=== PATIENT | male | born 1940 | race Caucasian/White ===

== ENCOUNTER 2020-04-06 20:06 | Inpatient (IN) | payer MEDICARE, OTHER, SELFPAY ==
[2020-04-06] VITALS (31 sets, daily range): BP systolic 82–131; BP diastolic 62–104; PULSE 100–140; RESP 16–24; TEMP 36.2; O2SAT 93–98
--- NOTE | ~2020-04-06 | XR_ITS ---
XR chest 1V portable 04/06/2020 20:56 Indication: Chest palpitations. Procedure: AP portable chest Comparison: No prior studies for comparison. Findings: Status post median sternotomy for CABG. Pacemaker leads are in expected position. There is patchy bilateral airspace disease predominantly involving the lower lung zones. Small pleural effusio ns. No pneumothorax. Impression: 1: Bilateral airspace disease most prominent in the lower lung zones. Differential diagnosis includes pneumonia and edema. 2: Small pleural effusions. 3: Cardiomegaly. Reviewed, dictated and finalized at location A. [employer] SALES MANAGER Impression: 1: Bilateral airspace disease most prominent in the lower lung zones. Different ial diagnosis includes pneumonia and edema. 2: Small pleural effusions. 3: Cardiomegaly.
--- NOTE | 2020-04-06 20:13 | ECG_ITS ---
Measurements Intervals [place] Rate: 125 P: UT: 0 QRS: 94 QRSD: 148 T: -88 QT: 360 QTc: 519 Interpretive Statements ATRIAL FIBRILLATION WITH RAPID VENTRICULAR RESPONSE VENTRICULAR TRIPLET, VENTRICULAR COUPLET AND VENTRICULAR PREMATURE COMPLEXES RIGHT AXIS DEVIATION LEFT BUNDLE BRANCH BLOCK BASELINE ARTIFACT- I, II, III ABNORMAL ECG Electronically Signed On 04-09-2020 13:44:39 CLINICAL OB by Edu Falcon D.O.
[2020-04-06 20:35] LABS: Basophils Percent Auto 0.2 % (0.2-1.2); Eosinophils Absolute Auto 0.1 K/mm3 (0-0.3); Eosinophils Percent Auto 1.2 % (0-4.4); Hematocrit 34.5 % (42.0-52.0); Hemoglobin 10.8 g/dL (14.0-18.0); Immature Granulocyte Absolute 0.04 K/mm3 (0.00-0.031); Immature Granulocyte Percent A 0.4 % (0-0.5); Lymphocytes Percent Auto 14.4 % (18.3-44.2); Mean Corpuscular HGB Conc 31.3 g/dl (32-36); Mean Corpuscular Hemoglobin 29.2 pg (26-34); Mean Corpuscular Volume 93.2 fl (80-100); Mean Platelet Volume 10.9 fl (7.4-10.4); Monocytes Absolute Auto 0.8 K/mm3 (0.1-0.6); Monocytes Percent Auto 8.6 % (2.6-8.5); Neutrophils Absolute Auto 7.3 K/mm3 (1.3-6.7); Neutrophils Percent Auto 75.2 % (45.5-73.1); Platelet Count Result 221 k/mm3 (150-375); Red Cell Distribution Width 15.9 % (11.5-14.5); White Blood Count 9.7 K/mm3 (4.5-10.0)
[2020-04-06 20:45] LABS: INR 1.4
[2020-04-06 20:46] LABS: Partial Thromboplastin Time 42.4 SECONDS (22.3-36.8)
[2020-04-06 20:47] LABS: Anion Gap 5 mmol/L (8-16); Blood Urea Nitrogen 18 mg/dL (9-20); Calcium 8.3 mg/dL (8.4-10.2); Carbon Dioxide 27 mmol/L (22-30); Chloride 103 mmol/L (98-107); Estimated Glomerular Filt Rate 59; Glucose 115 mg/dL (75-110); Potassium 4.7 mmol/L (3.4-5.0); Sodium 135 mmol/L (137-145)
[2020-04-06 20:59] LABS: NT Pro B Type Natriuretic Pept 7860 PG/ML (5-100); Troponin I 0.021 ng/mL (0.000-0.034)
--- NOTE | 2020-04-06 21:08 | PC.NURSE ---
Patient's pacemaker interrogated.
[2020-04-06] MEDS: dilTIAZem HCl INJ 25 MG/5 ML VIAL 10 MG IV PUSH (21:13)
--- NOTE | 2020-04-06 21:48 | ED.ARRPALP ---
HPI - Arrhythmia/Palpitations General Chief Complaint: Arrhythmia/Palpitations Stated Complaint: defib x 4 Time Seen by Provider: 04/06/20 20:11 History of Present Illness HPI narrative: Patient is a 79-year-old male who presents ER after experiencing 4 shocks from his defibrillator. He was at home he reports he been feeling small shortness of breath with laying back which is not unusual for him. Patient recently underwent three-vessel CABG with defibrillator placement at [facility]. He was discharged the last 2 days. Denies fevers or chills or sweats. No nausea/vomiting. He has had no chest pain since being at home. He is unsure what brand device is implanted in his chest. Reports no additional concerns. Related Data Home Medications Medication Instructions Recorded Confirmed apixaban 5 mg PO BID 04/06/20 aspirin [Aspir-81] 04/06/20 atorvastatin 80 mg PO DAILY 04/06/20 cholecalciferol (vitamin D3) 50 mcg PO DAILY 04/06/20 dofetilide 125 mcg PO Q12H 04/06/20 ferrous sulfate 325 mg PO DAILY 04/06/20 levothyroxine 50 mcg PO DAILY 04/06/20 lisinopril 10 mg PO DAILY 04/06/20 melatonin 1 mg PO HS PRN 04/06/20 metoprolol succinate 100 mg PO BID 04/06/20 mexiletine 200 mg PO Q8H 04/06/20 mirtazapine 15 mg PO DAILY 04/06/20 polyethylene glycol 3350 17 g PO DAILY 04/06/20 spironolactone 25 mg PO DAILY 04/06/20 Allergies Allergy/AdvReac Type Severity Reaction Status Date / Time quetiapine [From Seroquel] AdvReac Hallucinati Verified 04/06/20 20:12 ng Review of Systems Review of Systems: All systems reviewed & are unremarkable except as noted in HPI and below Constitutional: Constitutional: Denies chills, Denies fever(s) and Denies weakness ENT: Denies nasal congestion and Denies sore throat Cardiovascular: Cardiovascular: Denies chest pain, Denies rapid heart rate and Denies radiating jaw, neck or arm pain Respiratory: Respiratory: Denies cough, Reports dyspnea and Denies wheezing Comments: Orthopnea Gastrointestinal: Gastrointestinal: Denies abdominal pain, Denies nausea and Denies vomiting Integumentary/Breasts: Skin/Breast: Denies pruritus, Denies erythema and Denies rash PMFSH Past Medical History Medical History (Updated 04/06/20 @ 23:58 by Prateek Garduno MD) Atrial fibrillation CHF (congestive heart failure) Coronary artery disease Hypertension Surgical History Surgical History (Updated 04/06/20 @ 21:50 by Prateek Garduno MD) AICD (automatic cardioverter/defibrillator) present Hx of CABG Exam Narrative: Exam Narrative: GENERAL: Well-appearing, well-nourished, and in no acute distress. HEAD: Normocephalic, atraumatic. ENT: Mucous membranes moist. CHEST: Clear to auscultation. No respiratory distress. HEART: Tachycardic and irregular regular. Normal peripheral pulses. ABDOMEN: Soft, nontender, nondistended. EXTREMITIES: Normal range of motion. No edema. SKIN: Warm, dry, no rash. Well-healing surgical scars to the chest. NEURO: Alert and oriented x3. PSYCH: Normal mood and affect. Course Reevaluation(s) Reevaluation #1: Discussed case with Dr. Vazquez with cardiology at [facility]. We have discussed patient's presentation and history as well as his lab results. He is also been in touch with the [employer] hotel services sales representative who reviewed the strip. It is felt patient received inappropriate shocks due to the fact that he is in atrial fibrillation with RVR. Reports he feels patient needs better rate control. He does not feel patient needs to be transferred to [facility] at this time as this is not reflective of actual V. tach. Like to ensure that patient potassium stays above 4 as he is on Tikosyn. He has no additional concerns at this time. Reports he actually has patient scheduled for follow-up on 04/28/2020. Date: 04/06/20 Time: 22:41 Reevaluation #2: [facility] as he does not have a recent Covid swab despite him no
--- NOTE | 2020-04-06 23:47 | PC.NURSE ---
Called [facility] [place], spoke with A[facility]. He said they cannot accept a patient that has NOT been COVID tested and resulted. I told him that our COVID tests take anywhere from 24-48 hours, could be longer because they do not run the tests in our lab on Sundays. I asked him (per Dr. Garduno) if the he was refusing transfer/care of this patient due to COVID testing. He said YES. I also asked him since they were refusing the patient and he had to be admitted here, if the [place] would cover costs until such time the patient could be transferred to the [place] [facility]. He said YES. Informed Dr. Garduno and gear technician.
[2020-04-06 23:56] LABS: Troponin I 0.123 ng/mL (0.000-0.034)
[2020-04-06] MEDS: FUROSEMIDE INJ 40 MG/4 ML VIAL IV PUSH (23:59)
[2020-04-07] VITALS (22 sets, daily range): BP systolic 93–118; BP diastolic 49–91; PULSE 82–129; RESP 18–25; TEMP 35.6–36.7; O2SAT 95–99; BMI 24.3
--- NOTE | 2020-04-07 00:51 | PM.IMHP ---
H&P: HPI History of Present Illness Date/Time: 04/07/20 00:51 Chief Complaint: Defibrillator firing x4 Narrative: Pablo Medley is a 79 year old male with a past medical history of hypothyroidism, hypertension, coronary artery disease status post three-vessel CABG 03/04/2020 and atrial fibrillation who presented to the ER after having his defibrillator firing 4 times. The patient had been admitted to [facility] 03/04/2020 had 3 vessel CABG and ICD placed. He was discharged from [facility] in mid March and went to [facility] for acute rehab. He was discharged from acute rehab 04/04/2020. This was the 1st time his defibrillator had fired. When he presented to the ER he was noted to be in AFib RVR with a left bundle branch block. His pacemaker/defibrillator was interrogated and the interpretation was discussed with Dr. Vazquez from [facility] who felt the inappropriate shocks were due to patient being AFib RVR. He felt the patient needed improved rate control. He would like the patient's potassium to remain above 4 as he is on Tikosyn. The patient has an outpatient cardiology follow-up scheduled for 04/28/2020. [facility]. His case was discussed with the [facility] who declined transfer since patient did not have her recent COVID swab Patient's heart rate heart rate was in the 140s on arrival to the ER. He was given a dose of IV Cardizem and placed on a Cardizem drip at 10 mg/hr. Patient's x-ray in ER demonstrated evidence of versus edema and small pleural effusions and cardiomegaly. He subsequently received a dose of IV Lasix and has had at least a L of urine output since he arrived to the IMU. He denied having any chest pain prior to his defibrillator firing. He had not felt any palpitations. The patient had not yet filled his 2nd anti arrhythmic (Mexiletine) since he was discharged from rehab. Since he has been placed on a Cardizem drip his heart rate has improved down to 90. He appears to be going in and out of a bundle branch block on his telemetry. He will intermittently jump but heart rate up to 120 the 130s if he is moving around. He has not had any lower extremity swelling, orthopnea or paroxysmal nocturnal dyspnea. He has not had any cough congestion fevers or chills. Review of Systems Review of Systems: Narrative: 12 systems were reviewed with pertinent positives and negatives per HPI. Except as documented in the HPI, all other systems were reviewed and are negative. However limited as the patient is a poor historian. [facility] Past Medical History Medical History (Updated 04/07/20 @ 07:01 by Leisa Baez DO) Atrial fibrillation With history of ablation in 2019. On chronic anticoagulation with Eliquis CHF (congestive heart failure) Chronic constipation Coronary artery disease Diet-controlled diabetes mellitus Essential hypertension Hyperlipidemia Hypertension Hypothyroidism Iron deficiency anemia Ischemic cardiomyopathy with implantable cardioverter-defibrillator (ICD) Obstructive sleep apnea on CPAP Vitamin D deficiency Surgical History Surgical History (Updated 04/07/20 @ 07:01 by Leisa Baez DO) AICD (automatic cardioverter/defibrillator) present 03/04/2020 H/O inguinal hernia repair Due to incarcerated hernia as a child Hx of CABG 03/04/2020 at [facility] Hx of tonsillectomy Family History Family History Father Cerebrovascular accident Diabetes mellitus Esophageal cancer Social History Social History (Updated 04/07/20 @ 00:57 by Leisa Baez DO) Social History: Primary care physician: [facility] Code status: Full code Smoking packs per day: 2.5 Smoking cigarettes per day: 50.0 Years smoked: 30 Smoking pack-years: 75.00 Smoking status: Former smoker Smoking end date: 08/29/80 Alcohol intake: never Substance use: never Spiritual care alan
[2020-04-07 01:54] LABS: Glucose Point of Care 111 (65-105)
--- NOTE | 2020-04-07 02:37 | ADMIMU ---
This patient, Pablo Medley, was admitted to IMU status, and placed in IMU Room 232-01 on 04/07/20 at 0048. Patient/family oriented to hospital policies and general routines including ID bracelet, bed and alarms, visiting hours, pain management, procedures, bathroom and other care routines, personal items, smoking policy, room service/diet, and visiting hours. Information on how to activate the Rapid Response Team has been discussed. Patient/Family are encouraged to report perceived risks to care and to ask questions if they do not understand what they are told or what they should do.
[2020-04-07 03:18] LABS: Troponin I 0.143 ng/mL (0.000-0.034)
[2020-04-07 05:04] LABS: Anion Gap 3 mmol/L (8-16); Blood Urea Nitrogen 17 mg/dL (9-20); Calcium 8.2 mg/dL (8.4-10.2); Carbon Dioxide 30 mmol/L (22-30); Chloride 101 mmol/L (98-107); Estimated CRCL calculation 45 ml/min; Estimated Glomerular Filt Rate 53; Glucose 120 mg/dL (75-110); Magnesium 1.6 mg/dL (1.6-2.3); Potassium 3.9 mmol/L (3.4-5.0); Sodium 134 mmol/L (137-145)
--- NOTE | 2020-04-07 06:13 | PC.NURSE ---
Left message on Jessica's voicemail asking to bring nonformulary dofetilide to the hospital.
[2020-04-07] MEDS: LEVOTHYROXINE SODIUM 50 MCG TABLET PO (06:36)
[2020-04-07 07:37] LABS: Glucose Point of Care 88 (65-105)
[2020-04-07] MEDS: ATORVASTATIN 40 MG TABLET PO (09:10)
[2020-04-07] MEDS: POTASSIUM CHLORIDE 20 MEQ TABLET PO (09:10)
[2020-04-07] MEDS: SPIRONOLACTONE 12.5 MG TABLET PO (09:11)
[2020-04-07] MEDS: FUROSEMIDE INJ 40 MG/4 ML VIAL IV PUSH (09:11)
[2020-04-07] MEDS: ASPIRIN 81 MG ENTERIC TABLET PO (09:11)
[2020-04-07] MEDS: lisinopriL 5 MG TABLET PO (09:11)
[2020-04-07] MEDS: MEXILETINE HCL 200 MG CAPSULE PO ×2 (09:11→15:11)
[2020-04-07] MEDS: CHOLECALCIFEROL 1,000 UNITS TABLET 2000 UNITS PO (09:12)
[2020-04-07] MEDS: METOPROLOL SUCCINATE EXT REL 50 MG TABCR PO (09:12)
[2020-04-07] MEDS: APIXABAN 5 MG TABLET PO (09:12)
[2020-04-07] MEDS: FERROUS SULFATE 324 MG TABLET PO (09:12)
[2020-04-07] MEDS: HYDROcodone/acetaminophen (*CRX) 5-325 MG TABLET 1 TAB PO (09:17)
--- NOTE | 2020-04-07 11:23 | WPDCNINT ---
Assessment and Plan Assessment and plan (1) Ventricular tachycardia: Code(s): I47.2 - Ventricular tachycardia Status: Acute Assessment and Plan: Patient presented with VT which was cardioverted with his AICD. AICD interrogation shows multiple episodes of ventricular tachycardia. Likely secondary to his ischemic cardiomyopathy Patient on p.o. dofetilide and he has not started mexiletine Cardiology will decide on best strategy at this time regarding antiarrhythmic drugs after discussion with pharmacy. Plan is to start amiodarone after consideration of interaction with other antiarrhythmic drugs. I will defer this to Dr. Gomez who will discuss with pharmacy and order the appropriate medication Patient will be admitted to ICU for monitoring Monitor electrolytes (2) Atrial fibrillation with rapid ventricular response: Code(s): I48.91 - Unspecified atrial fibrillation Status: Acute Assessment and Plan: He was in AFib with RVR on presentation as depicted by his EKG but at this time he is in sinus rhythm with frequent PVCs (3) AICD discharge: Code(s): Z45.02 - Encounter for adjustment and management of automatic implantable cardiac defibrillator Status: Acute Assessment and Plan: See above (4) Ischemic cardiomyopathy with implantable cardioverter-defibrillator (ICD): Code(s): I25.5 - Ischemic cardiomyopathy; Z95.810 - Presence of automatic (implantable) cardiac defibrillator Status: Inactive Assessment and Plan: See above Will defer echocardiogram as patient is going to [facility] once bed is available Patient on Aldactone, LES-inhibitor and beta-elbert (5) Acute exacerbation of CHF (congestive heart failure): Qualifiers: Heart failure type: unspecified Qualified Code(s): I50.9 - Heart failure, unspecified Code(s): I50.9 - Heart failure, unspecified Status: Acute Assessment and Plan: Patient received Lasix on presentation to ER and currently saturating well on nasal cannula and not in respiratory distress Still has crackles on his bases Continue Lasix (6) NSTEMI (non-ST elevated myocardial infarction): Code(s): I21.4 - Non-ST elevation (NSTEMI) myocardial infarction Status: Acute Assessment and Plan: Patient had elevated troponin likely from V-tach and AICD discharge He denies any chest pain before or after the event Continue aspirin apixaban atorvastatin and beta-elbert (7) Coronary artery disease: Code(s): I25.10 - Atherosclerotic heart disease of [place] coronary artery without angina pectoris Status: Inactive Assessment and Plan: See above (8) Diabetes mellitus: Code(s): E11.9 - Type 2 diabetes mellitus without complications Status: Acute Assessment and Plan: Patient takes metformin at home. Sliding scale insulin Additional Plan DVT prophylaxis -apixaban Nutrition -diabetic diet Code Status - Full Code Case discussed with Dr. Gomez Hydraulic Tester Consult Note Consult date: 04/07/20 Time Seen: 11:30 HPI: Pablo Medley is a 79 year old male with a past medical history of hypothyroidism, hypertension, coronary artery disease status post three-vessel CABG 03/04/2020 and atrial fibrillation who presented to the ER after having his defibrillator firing 4 times prior to presentation. The patient had been admitted to [facility] 03/04/2020 had 3 vessel CABG and ICD placed. He was discharged from [facility] in mid March and went to [facility] for acute rehab. He was discharged from acute rehab 04/04/2020. This was the 1st time his defibrillator had fired. When he presented to the ER he was noted to be in AFib RVR with a left bundle branch block. His pacemaker/defibrillator was interrogated and the interpretation was discussed with Dr. Vazquez from [facility] who felt the inappropriate shocks were due to patient being AFib RVR. He felt th
--- NOTE | 2020-04-07 11:25 | PM.CNCAR ---
Assessment and Plan Additional Plan AF with RVR resulted in inappropriate shock and recurrent frequent episodes of NSVT. Hx of CABG recently and Hx of recurrent arrhythmia following with EP team in [facility], plan D/C mexiletine and Dofetilide and D/C Diltiazem and start amiodarone infusion. Cont B-elbert, ASA, statin. We need to consult pharmacy regarding change from Dofetilide to Amiodarone giving risk of drug interaction. I suggest that amiodarone not started until tomorrow. History of Present Illness History of Present Illness Consult date/time: 04/07/20 11:25 Consult reason: Other (Device shock ) Reason For Visit: afib rvr, acid shock, chf exacerbation Narrative: Patient presented to hospital with acute chest pain secondary to device shock * 4 yesterday. He felt dizziness for short period of time associated with SOB but feels better today. He CABG in [facility] in Mar and had Hx of AF and was on Tikosyn and He was also on mexilitine. Overnight he was noted to have more than 20 episodes of NSVT and 2 episodes of VT that was treated with anti-tachycardia pacing or terminated spontaneously. Review of Systems Review of Systems: All systems reviewed & are unremarkable except as noted in HPI and below PMFSH Past Medical History Medical History (Updated 04/07/20 @ 11:25 by Hussein Vasquez MD) Atrial fibrillation With history of ablation in 2019. On chronic anticoagulation with Eliquis CHF (congestive heart failure) Chronic constipation Coronary artery disease Diet-controlled diabetes mellitus Essential hypertension Hyperlipidemia Hypertension Hypothyroidism Iron deficiency anemia Ischemic cardiomyopathy with implantable cardioverter-defibrillator (ICD) Obstructive sleep apnea on CPAP Vitamin D deficiency Surgical History Surgical History AICD (automatic cardioverter/defibrillator) present 03/04/2020 H/O inguinal hernia repair Due to incarcerated hernia as a child Hx of CABG 03/04/2020 at [facility] Hx of tonsillectomy Family History Family History Father Cerebrovascular accident Diabetes mellitus Esophageal cancer Social History Social History Social History: Primary care physician: [facility] Code status: Full code Smoking packs per day: 2.5 Smoking cigarettes per day: 50.0 Years smoked: 30 Smoking pack-years: 75.00 Smoking status: Former smoker Smoking end date: 08/29/80 Alcohol intake: never Substance use: never Spiritual care concerns: No Meds Home Medications and Allergies Home Medications Medication Instructions Recorded Confirmed Type apixaban 5 mg PO BID 04/06/20 04/07/20 History aspirin [Aspir-81] 81 mg PO DAILY 04/06/20 04/07/20 History atorvastatin 40 mg PO DAILY 04/06/20 04/07/20 History cholecalciferol (vitamin D3) 50 mcg PO DAILY 04/06/20 04/07/20 History dofetilide 125 mcg PO Q12H 04/06/20 04/07/20 History ferrous sulfate 325 mg PO DAILY 04/06/20 04/07/20 History levothyroxine 50 mcg PO DAILY 04/06/20 04/07/20 History lisinopril 5 mg PO DAILY 04/06/20 04/07/20 History melatonin 2 mg PO HS PRN 04/06/20 04/07/20 History metoprolol succinate 50 mg PO BID 04/06/20 04/07/20 History mexiletine 200 mg PO TID 04/06/20 04/07/20 History mirtazapine 15 mg PO DAILY 04/06/20 04/07/20 History polyethylene glycol 3350 17 g PO DAILY PRN 04/06/20 04/07/20 History spironolactone 12.5 mg PO DAILY 04/06/20 04/07/20 History Allergies Allergy/AdvReac Type Severity Reaction Status Date / Time quetiapine [From Seroquel] AdvReac Hallucinati Verified 04/07/20 01:07 ng Vital Signs Vital Signs - 24 hr 04/06/20 20:03 04/06/20 20:09 04/06/20 20:10 Temperature 36.2 C L Pulse Rate 140 H 140 H Respiratory Rate 20 Blood Pressure 108/87 108/87 Pulse Oximetry 97 94 04/06/20 20:15 02/06
[2020-04-07 11:54] LABS: Glucose Point of Care 95 (65-105)
--- NOTE | 2020-04-07 12:11 | PM.IMPN ---
Progress Note: A&P Assessment and Plan (1) Atrial fibrillation with rapid ventricular response: Code(s): I48.91 - Unspecified atrial fibrillation Status: Acute (2) AICD discharge: Code(s): Z45.02 - Encounter for adjustment and management of automatic implantable cardiac defibrillator Status: Acute (3) Acute exacerbation of CHF (congestive heart failure): Qualifiers: Heart failure type: unspecified Qualified Code(s): I50.9 - Heart failure, unspecified Code(s): I50.9 - Heart failure, unspecified Status: Acute (4) Diabetes mellitus: Code(s): E11.9 - Type 2 diabetes mellitus without complications Status: Acute (5) Coronary artery disease: Code(s): I25.10 - Atherosclerotic heart disease of [place] coronary artery without angina pectoris Status: Acute (6) Hypertension: Code(s): I10 - Essential (primary) hypertension Status: Inactive (7) DVT prophylaxis: Code(s): Z29.9 - Encounter for prophylactic measures, unspecified Status: Acute Additional Plan Patient admitted after defibrillator discharge x4. Telemetry showing frequent nonsustained V-tach and also episodes of V-tach. With atrial fibrillation with RVR. Discussed the case with Cardiology with plans to stop mexiletine and Dofetilide and start amiodarone infusion. He has already spoken with the EP physician at [facility] with plans for transfer when a bed is available. Patient to be moved to the ICU for closer monitoring. Subjective Date/time seen: 04/07/20 12:11 Interval history: Date of service 04/07 79yo male with CHF, CAD and diabetes here after his defibrillator fired x4. Patient recently at [facility] on March 04 for three-vessel CABG and ICD placement. He was discharged to acute rehab; he was discharged from acute rehab on April 04 Patient denies any chest pain or other symptoms prior to the firing of the defibrillator. He does state he felt tired. He does have sleep apnea and is noncompliant with treatment. He does not wear oxygen at home. He has shortness of breath but this is chronic. He feels better today. Exam Narrative: Exam Narrative: AF 97.3 104/49 96 22 96% RA Gen - NARD lyiing semirecumbent in bed Chest - L>R bibasilar inspiratory, nml RR. midline chest incision with dried eschar and healing well CV - irregularly irregular. Tele showing runs of NSVT Abd - Soft, NT/ND, Positive BS Ext - No pedal edema; 2+ DP Psych - Nml mood and affect Skin - cool and dry Objective Data Vital Signs Vital Signs: Vital Signs - 24 hr 04/06/20 20:03 04/06/20 20:09 04/06/20 20:10 Temperature 97.1 F L Pulse Rate 140 H 140 H Respiratory Rate 20 Blood Pressure 108/87 108/87 Pulse Oximetry 97 94 04/06/20 20:15 04/06/20 20:16 04/06/20 20:30 Temperature Pulse Rate 118 H 126 H 122 H Respiratory Rate Blood Pressure 131/104 H Pulse Oximetry 95 95 94 04/06/20 20:31 04/06/20 20:45 04/06/20 21:00 Temperature Pulse Rate 117 H 115 H 114 H Respiratory Rate Blood Pressure 118/77 Pulse Oximetry 96 97 97 04/06/20 21:01 04/06/20 21:02 04/06/20 21:15 Temperature Pulse Rate 133 H 122 H 111 H Respiratory Rate Blood Pressure 103/82 Pulse Oximetry 97 98 96 04/06/20 21:30 04/06/20 21:32 04/06/20 21:39 Temperature Pulse Rate 127 H 120 H 124 H Respiratory Rate 23 H 23 H 23 H Blood Pressure 98/71 L Pulse Oximetry 96 96 95 04/06/20 21:41 04/06/20 21:45 04/06/20 22:00 Temperature Pulse Rate 100 115 H 123 H Respiratory Rate 22 H 17 23 H Blood Pressure 112/62 Pulse Oximetry 96 96 93 04/06/20 22:01 04/06/20 22:15 04/06/20 22:30 Temperature Pulse Rate 115 H 118 H 125 H Respiratory Rate 22 H 24 H 22 H Blood Pressure 101/75 Pulse Oximetry 98 04/06/20 22:31 04/06/20 22:45 04/06/20 23:00 Temperature Pulse Rate 109 H 131 H 108 H Respiratory Rate 20 22 H Blood Pres
--- NOTE | 2020-04-07 13:23 | PC.NURSE ---
This patient, Pablo Medley, was received from [ IMU] on 04/07/20 at 1250. Patient/family oriented to unit policies and routines
--- NOTE | 2020-04-07 13:38 | PC.NURSE ---
This patient, Pablo Medley, was transferred to ICU-3 on 04/07/20 at 1240. Personal belongings sent with patient. Report given to Gauri RODRÍGUEZ. Appropriate documentation sent with patient.
[2020-04-07 16:09] LABS: Anion Gap 4 mmol/L (8-16); Blood Urea Nitrogen 18 mg/dL (9-20); Calcium 8.4 mg/dL (8.4-10.2); Carbon Dioxide 32 mmol/L (22-30); Chloride 97 mmol/L (98-107); Estimated CRCL calculation 45 ml/min; Estimated Glomerular Filt Rate 53; Glucose 131 mg/dL (75-110); Magnesium 1.6 mg/dL (1.6-2.3); Potassium 4.1 mmol/L (3.4-5.0); Sodium 133 mmol/L (137-145)
--- NOTE | 2020-04-07 16:24 | PC.NURSE ---
Patient discharged to [facility], room 412 at 1622. Patient transported via [employer]. At time of discharge, patient orientedx3, no complaints of chest pain or shortness of breath. VS: HR 88, oxygen 99% room air, RES 21, BP 89/57. Patient spouse advised patient en route to [facility].
--- NOTE | 2020-04-07 18:46 | PM.TDS ---
Transfer Discharge Sum: Prov Provider Date of admission: 04/07/20 07:15 Primary care physician: KHAI QUINTEROS,DOYLE Admitting clinician: Leisa Baez DO Consults: 04/07/20 Consult to Physician Routine Comment: Consulting Provider: Ciera Michel watch assembler/MD group to consult: Cardiology Reason for consultation: AFib RVR, recent CABG, defibrillator firing Has provider been notified: Yes Consult to Physician Routine Comment: Consulting Provider: Hussein Vasquez Reason for consultation: recurrent V Tach Has provider been notified: Yes Attending physician on discharge: Wei Zaragoza Discharging clinician: Wei Zaragoza Anticipated date of transfer: 04/07/20 Receiving physician/facility: [facility] Dr David Chavez DS: Admitting Diagnosis Admitting Diagnosis Admitting Diagnosis: ICD firing x4 DS: Discharge Diagnosis Discharge Diagnosis (1) Atrial fibrillation with rapid ventricular response: Code(s): I48.91 - Unspecified atrial fibrillation Status: Acute (2) AICD discharge: Code(s): Z45.02 - Encounter for adjustment and management of automatic implantable cardiac defibrillator Status: Acute (3) Acute exacerbation of CHF (congestive heart failure): Qualifiers: Heart failure type: unspecified Qualified Code(s): I50.9 - Heart failure, unspecified Code(s): I50.9 - Heart failure, unspecified Status: Acute (4) Diabetes mellitus: Code(s): E11.9 - Type 2 diabetes mellitus without complications Status: Acute (5) Coronary artery disease: Code(s): I25.10 - Atherosclerotic heart disease of [place] coronary artery without angina pectoris Status: Acute (6) Hypertension: Code(s): I10 - Essential (primary) hypertension Status: Inactive (7) DVT prophylaxis: Code(s): Z29.9 - Encounter for prophylactic measures, unspecified Status: Acute Transfer Discharge Sum: Med Medications Active and Home Medications: Home Medications apixaban 5 mg PO BID 04/06/20 [History Confirmed 04/07/20] aspirin [Aspir-81] 81 mg PO DAILY 04/06/20 [History Confirmed 04/07/20] atorvastatin 40 mg PO DAILY 04/06/20 [History Confirmed 04/07/20] cholecalciferol (vitamin D3) 50 mcg PO DAILY 04/06/20 [History Confirmed 04/07/20] dofetilide 125 mcg PO Q12H 04/06/20 [History Confirmed 04/07/20] ferrous sulfate 325 mg PO DAILY 04/06/20 [History Confirmed 04/07/20] levothyroxine 50 mcg PO DAILY 04/06/20 [History Confirmed 04/07/20] lisinopril 5 mg PO DAILY 04/06/20 [History Confirmed 04/07/20] melatonin 2 mg PO HS PRN 04/06/20 [History Confirmed 04/07/20] metoprolol succinate 50 mg PO BID 04/06/20 [History Confirmed 04/07/20] mexiletine 200 mg PO TID 04/06/20 [History Confirmed 04/07/20] mirtazapine 15 mg PO DAILY 04/06/20 [History Confirmed 04/07/20] polyethylene glycol 3350 17 g PO DAILY PRN 04/06/20 [History Confirmed 04/07/20] spironolactone 12.5 mg PO DAILY 04/06/20 [History Confirmed 04/07/20] Transfer Discharge Sum: Hosp Hospital Course Hospital course: Pablo Medley is a 79 year old male her after his defibrillator fired 4 times. Please see H&P for details. Patient seen in ED after defibrillator discharged x4 and found to have AFib. He was given Diltiazem 10mg once in ED as well as Lasix. He was started on Diltiazem drip and admitted to IMU. Telemetry showing frequent nonsustained V-tach and also episodes of V-tach with atrial fibrillation with RVR. Discussed the case with Cardiology with plans to stop mexiletine and Dofetilide and start amiodarone infusion. Patient moved to ICU for closer monitoring. Cardiolgist spoke with the EP physician at [facility] with plans for transfer when a bed is available. Patient was accepted and transferred to [facility] for further management. Time Spent with Patient Time attestation: Total time spent providing and/or coordinating transfer services:38 minutes Total time spent: Greater than 30 minutes Exam N
== END 2020-04-07 16:22 | disposition short-term general hospital (02) | DRG 310 ==
LOC: ANHED 23:58 → ANHIMU 04-07 00:07 → ANHICU 04-10 12:48 → ANHIMU 04-10 12:48
PROVIDERS: Internal Medicine; Admitting Provider Internal Medicine; Emergency Provider Emergency Medicine; Visit Provider Internal Medicine
DX: I48.20 Chronic atrial fibrillation, unspecified (principal); I11.0 Hypertensive heart disease with heart failure; I50.9 Heart failure, unspecified; I47.2 Ventricular tachycardia; I25.10 Atherosclerotic heart disease of native coronary artery without angina pectoris; E03.9 Hypothyroidism, unspecified; E11.9 Type 2 diabetes mellitus without complications; E78.5 Hyperlipidemia, unspecified; I25.5 Ischemic cardiomyopathy; D50.9 Iron deficiency anemia, unspecified; G47.33 Obstructive sleep apnea (adult) (pediatric); I44.7 Left bundle-branch block, unspecified; E55.9 Vitamin D deficiency, unspecified; Z95.1 Presence of aortocoronary bypass graft; Z95.810 Presence of automatic (implantable) cardiac defibrillator; Z87.891 Personal history of nicotine dependence; Z91.14 Patient's other noncompliance with medication regimen
CPT/HCPCS: 36415; 71045; 80048; 82948; 83735; 83880; 84484; 85025; 85610; 85730; 93005; 96365; 96366; 96375; 96376; 99285; A9270; G0378; J1940

== ENCOUNTER 2020-05-20 17:28 | Inpatient (IN) | payer MEDICARE, OTHER, SELFPAY ==
[2020-05-20] VITALS (14 sets, daily range): BP systolic 112–134; BP diastolic 74–90; PULSE 89–97; RESP 14–24; TEMP 36.4; O2SAT 93–99; BMI 21.7
--- NOTE | ~2020-05-20 | CT_ITS ---
EXAMINATION: CT abdomen pelvis w con EXAM DATE: 05/20/2020 19:16 INDICATION: Left lower quadrant pain. TECHNIQUE: Spiral CT of the abdomen and pelvis was performed following intravenous injection of 100 m L Omnipaque 350. Axial, coronal and sagittal images were reviewed. The dose-length product (DLP) fo r this examination was 412.19 mGy-cm. The exposure was tailored according to patient size (auto mA e xposure control), and iterative reconstruction (ASIR) was used as additional dose reduction technique . There is no prior study for comparison. FINDINGS: There is fusiform infrarenal abdominal aortic aneurysm measuring 5.9 cm transverse dimensio n by 4.7 cm AP dimension. No rupture. Aneurysmal common iliac arteries bilaterally as well with the r ight measuring 2.3 cm and the left measuring 2.4 cm. The liver, spleen, adrenal glands and pancreas are unremarkable. There are gallstones within an othe rwise unremarkable gallbladder. No evidence of obstructive biliary disease. Portal and splenic vein s are patent. Kidneys enhance symmetrically. There is no hydronephrosis. There are multiple bilater al renal cysts, largest on the right at 10 cm. The prostate is unremarkable. Small left inguinal fat -containing hernia. Possible right-sided orchiectomy. The bladder is unremarkable. There is no retr operitoneal or pelvic lymphadenopathy. The appendix is not positively visualized. There is no pericecal inflammatory change to suggest appe ndicitis. There is moderate sigmoid sigmoid colon is tortuous. colonic diverticulosis. There is no a djacent inflammatory change to suggest diverticulitis. Moderate amount of colonic contents, air-fluid levels in the sigmoid colon could indicate diarrhea. There is moderate-sized gastroesophageal hiatal hernia. No free intraperitoneal gas. There is cardiomegaly, with severe left ventricular enlargement. There is small to moderate pericardi al effusion. There are small bilateral pleural effusions. There is peripheral predominant regions of consolidation consistent with subacute COVID pneumonia. The lung bases are unremarkable. There are n o osteoblastic or osteolytic lesions identified. IMPRESSION: 1. Fusiform infrarenal aortic aneurysm up to 5.9 cm; consider prophylactic treatment. Bilateral comm on iliac artery aneurysms. 2. Scattered regions of bibasilar peripheral consolidation consistent with subacute COVID pneumonia. Small bilateral pleural effusions. 3. Left ventricular enlargement and small to moderate pericardial effusion. 4. Moderate-sized gastroesophageal hiatal hernia. 5. Moderate sigmoid diverticulosis. 6. Rectosigmoid fluid. 7. Cholelithiasis Reviewed, dictated and finalized at location A. IMPRESSION: 1. Fusiform infrarenal aortic aneurysm up to 5.9 cm; consider prophylactic luis carlos atment. Bilateral common iliac artery aneurysms. 2. Scattered regions of bibasilar peripheral consolidation consistent with sub acute COVID pneumonia. Small bilateral pleural effusions. 3. Left ventricular enlargement and small to moderate pericardial effusion. 4. Moderate-sized gastroesophageal hiatal hernia. 5. Moderate sigmoid diverticulosis. 6. Rectosigmoid fluid. 7. Cholelithiasis
--- NOTE | ~2020-05-20 | XR_ITS ---
EXAMINATION: XR chest 1V portable EXAM DATE: 05/20/2020 18:50 INDICATION: Cough, COVID+ beginning of the month. TECHNIQUE: Portable AP frontal chest x-ray was obtained. Comparison is made to prior examination from 04/06/2020. FINDINGS: Multi lead pacemaker/AICD device. Sternotomy wires are present without findings to suggest sternal dehiscence. Mild cardiomegaly. There is moderate amount of bilateral ill-defined airspace disease, appearance is consistent with COV ID pneumonia. This has improved on the left compared to previous study and is probably not significan tly changed on the right. No sizable pleural effusion. There is no pneumothorax suspected. There is a ortic arteriosclerosis. Mild bony degenerative changes. IMPRESSION: Moderate amount of bilateral ill-defined airspace disease probably COVID pneumonia. Reviewed, dictated and finalized at location A.
--- NOTE | 2020-05-20 17:39 | ECG_ITS ---
Measurements Intervals [place] Rate: 94 P: 69 IA: 217 QRS: -33 QRSD: 171 T: 81 QT: 398 QTc: 498 Interpretive Statements SINUS RHYTHM WITH FIRST DEGREE AV BLOCK POSSIBLE LEFT ATRIAL ENLARGEMENT LEFT AXIS DEVIATION LEFT BUNDLE BRANCH BLOCK ABNORMAL ECG Electronically Signed On 05-21-2020 6:50:54 CDT by Edu Falcon D.O.
--- NOTE | 2020-05-20 17:44 | ED.WEAKNESS ---
HPI - Weakness General Chief complaint: Weakness Stated complaint: WEAKNESS/VOMITING Time Seen by Provider: 05/20/20 17:33 History of Present Illness HPI Narrative: 79 yo male with unknown medical history presents to the ED from [facility] for weakness and vomiting. Per EMS he has been in and out of the hospital and rehab for the past few months due to similar issue. Apparently his pulled him opted to have him discharged because she did not believe that it was helping, but he has not been getting any better at home. He reports LLQ pain. He says that it is always there. No fever, CP, SOB. History limited due to very poor historian. Per his he had COVID in January. During a prolonged hospitalization he also had a CABG. She says that he has been vomiting for the past 3-4 days. Related Data Home Medications Medication Instructions Recorded Confirmed acetaminophen [Tylenol] 325 mg PO ONCE 05/20/20 05/20/20 apixaban [Eliquis] 5 mg PO BID 05/20/20 05/20/20 atorvastatin 40 mg PO HS 05/20/20 05/20/20 famotidine 20 mg PO DAILY 05/20/20 05/20/20 ferrous sulfate 325 mg PO DAILY 05/20/20 05/20/20 folic acid 1 mg PO DAILY 05/20/20 05/20/20 levothyroxine 50 mcg PO DAILY 05/20/20 05/20/20 melatonin 4 mg PO HS 05/20/20 05/21/20 mexiletine 300 mg PO Q8H 05/20/20 05/20/20 pantoprazole [Protonix] 20 mg PO HS 05/20/20 05/20/20 polyethylene glycol 3350 [Miralax] 17 g PO DAILY PRN 05/20/20 05/20/20 tamsulosin [Flomax] 0.4 mg PO HS 05/20/20 05/20/20 Allergies Allergy/AdvReac Type Severity Reaction Status Date / Time No Known Allergies Allergy Verified 05/20/20 19:13 Review of Systems Review of Systems: All systems reviewed & are unremarkable except as noted in HPI and below Constitutional: Constitutional: Denies fever(s) and Reports weakness Eyes: Eyes: Reports no additional eye complaints Cardiovascular: Cardiovascular: Denies chest pain Respiratory: Respiratory: Denies dyspnea Gastrointestinal: Gastrointestinal: Reports abdominal pain and Reports vomiting Genitourinary: Genitourinary: Reports oliguria Musculoskeletal: Musculoskeletal: Reports no additional musculoskeletal complaints Neurologic: Denies dizziness and Reports weakness [facility] Social History Social History Smoking status: Former smoker Alcohol intake: never Substance use: never Gender identity (if verbalized by the patient): Male Spiritual care concerns: No Exam Const: General: no acute distress, alert and ill appearing HENMT: Head: normal to inspection Eyes: Conjunctivae: conjunctivae normal Pupils: Equal, round and reactive pupils present EOM: EOMs intact bilaterally Cardio: Rate: regular rate Rhythm: regular rhythm GI: Inspection: non-distended GI Palp: Yes Soft to palpation, Yes Tenderness to palpation present (GI) (LLQ), Yes Guarding due to palpation present (GI) and No Rebound tenderness present Skin: General skin exam: normal color Neuro: General: moves all extremities, no meningeal signs, no focal motor deficits and CN's II-XI intact bilaterally Speech: normal speech Extrem: General: normal to inspection Course Vital Signs Vital signs: Vital Signs Temperature 36.4 C L 05/20/20 17:30 Pulse Rate 95 05/20/20 17:30 Respiratory Rate 18 05/20/20 17:30 Blood Pressure 123/83 05/20/20 17:30 Pulse Oximetry 96 05/20/20 17:30 Temperature 36.3 C L 05/21/20 06:00 Pulse Rate 68 05/21/20 06:00 Respiratory Rate 16 05/21/20 06:00 Blood Pressure 95/52 L 05/21/20 06:00 Pulse Oximetry 94 05/21/20 09:15 MDM - Weakness MDM Narrative Medical decision making narrative: No acute findings on evaluation. Not doing well at home. I will admit for fluids and likely placement if he does not improve. Differential Diagnosis Differential diagnosis: Likely sepsis, dehydration and other Medical Records Attestation: I reviewed the patient's medical records. Lab
[2020-05-20] MEDS: SODIUM CHLORIDE 0.9% IV 500 ML 999 ML IV CONT (18:15)
[2020-05-20 18:33] LABS: Eosinophils Percent Auto 0.3 % (0-4.4); Hematocrit 35.6 % (42.0-52.0); Hemoglobin 11.2 g/dL (14.0-18.0); Immature Granulocyte Absolute 0.06 K/mm3 (0.00-0.031); Immature Granulocyte Percent A 0.8 % (0-0.5); Lymphocytes Absolute Auto 0.46 K/mm3 (0.9-3.2); Mean Corpuscular HGB Conc 31.5 g/dl (32-36); Mean Corpuscular Hemoglobin 28.4 pg (26-34); Mean Corpuscular Volume 90.1 fl (80-100); Monocytes Absolute Auto 0.4 K/mm3 (0.1-0.6); Monocytes Percent Auto 4.8 % (2.6-8.5); Neutrophils Absolute Auto 6.8 K/mm3 (1.3-6.7); Neutrophils Percent Auto 88.1 % (45.5-73.1); Platelet Count Result 174 k/mm3 (150-375); Red Blood Count 3.95 M/mm3 (4.6-6.20); Red Cell Distribution Width 15.9 % (11.5-14.5); White Blood Count 7.7 K/mm3 (4.5-10.0)
[2020-05-20 18:44] LABS: Lipase 54 U/L (23-300)
[2020-05-20 18:45] LABS: Lactic Acid Reflex 1.1 mmol/L (0.7-2.1)
[2020-05-20 18:46] LABS: Alanine Aminotransferase 13 U/L (4-50); Alkaline Phosphatase 110 U/L (38-126); Anion Gap 6 mmol/L (8-16); Aspartate Amino Transferase 27 U/L (17-59); Bilirubin,Total 0.8 mg/dL (0.2-1.3); Blood Urea Nitrogen 16 mg/dL (9-20); Calcium 8.5 mg/dL (8.4-10.2); Carbon Dioxide 28 mmol/L (22-30); Chloride 98 mmol/L (98-107); Estimated CRCL calculation 42 ml/min; Estimated Glomerular Filt Rate 53; Glucose 98 mg/dL (75-110); Potassium 4.1 mmol/L (3.4-5.0); Sodium 132 mmol/L (137-145)
[2020-05-20 19:50] LABS: Add Urine Microscopic? YES; Appearance Urine Cloudy (Clear); Bacteria Urine Trace /hpf; Bilirubin Urine Negative (Negative); Blood Urine Negative (Negative); Color Urine Amber (Yellow); Glucose Urine UA Negative (Negative); Ketones Urine Trace mg/dL (Negative); Leukocyte Esterase Ur Negative LEU/UL (Negative); Mucus Urine Heavy /lpf; Nitrate Urine Negative (Negative); Protein Urine 1+ mg/dL (Negative); RBC Urine 0-2 /hpf (0-2); Specific Grav Ur 1.026 (1.001-1.035); Squamous Epithelial Cell Urine Rare /hpf (Few); WBC Urine 0-3 /hpf
[2020-05-20] MEDS: LACTATED RINGERS 1,000 ML 100 ML IV CONT (22:25)
--- NOTE | 2020-05-20 23:18 | PM.IMHP ---
H&P: HPI History of Present Illness Date/Time: 05/20/20 23:18 Chief Complaint: nausea and vomiting+ Narrative: This is a 79 year old male with known history of chronic anticoagulation with Eliquis for an unknown reason, hypothyroidism, and CAD+ s/p CABG who presented to the hospital with his secondary to ongoing nausea and vomiting. The patient reports chronic nausea, vomiting, poor appetite, and a 40 pound weight loss. He was recently in a residential facility for rehab and his had him discharged home as he was not getting better. Tonight in the ER he was complaining of LLQ abdominal pain. He reports 3-4 episodes of vomiting today. He complains of feeling hungry until someone brings him food and then he doesn't want to eat it and started to feel nauseated. CT abd/pelvis was obtained which demonstrated a fusiform infrarenal aortic aneurysm up to 5.9 cm and a moderate sized hiatal hernia. He denies any past history of abdominal aortic aneurysm. On my encounter with this tonight he currently denies any further abdominal pain. He also denies any fevers, chills, headache, chest pain, shortness of breath, cough, abdominal pain, dysuria, hematuria, diarrhea, rectal bleeding, black stools, or LE swelling. He does however report extreme generalized weakness and feeling tired. We have been asked to admit the patient to the hospital for IV fluids as he has not been able to keep down any fluids. No other complaints. The patient does not know his own medical history and states that his knows his medical conditions and medicines. Apparently the patient just had COVID pneumonia a few months ago. Review of Systems Review of Systems: All systems reviewed & are unremarkable except as noted in HPI and below PMFSH Past Medical History Medical History AAA (abdominal aortic aneurysm) Anorexia Atrial fibrillation With history of ablation in 2019. On chronic anticoagulation with Eliquis Cardiac arrhythmia CHF (congestive heart failure) Chronic constipation Coronary artery disease Diet-controlled diabetes mellitus Essential hypertension Hyperlipidemia Hypertension Hypothyroidism Iron deficiency anemia Ischemic cardiomyopathy with implantable cardioverter-defibrillator (ICD) Obstructive sleep apnea on CPAP Vitamin D deficiency Surgical History Surgical History AICD (automatic cardioverter/defibrillator) present 03/04/2020 H/O inguinal hernia repair Due to incarcerated hernia as a child Hx of CABG 03/04/2020 at [facility] Hx of tonsillectomy Family History Family History Father Cerebrovascular accident Diabetes mellitus Esophageal cancer Social History Social History Social History: Primary care physician: [facility] Code status: Full code Smoking packs per day: 2.5 Smoking cigarettes per day: 50.0 Years smoked: 30 Smoking pack-years: 75.00 Smoking status: Former smoker Smoking end date: 08/29/80 Alcohol intake: never Substance use: never Gender identity (if verbalized by the patient): Male Spiritual care concerns: No Meds Home Medications and Allergies Home Medications Medication Instructions Recorded Confirmed Type apixaban 5 mg PO BID 04/06/20 04/07/20 History aspirin [Aspir-81] 81 mg PO DAILY 04/06/20 04/07/20 History atorvastatin 40 mg PO DAILY 04/06/20 04/07/20 History cholecalciferol (vitamin D3) 50 mcg PO DAILY 04/06/20 04/07/20 History dofetilide 125 mcg PO Q12H 04/06/20 04/07/20 History ferrous sulfate 325 mg PO DAILY 04/06/20 04/07/20 History levothyroxine 50 mcg PO DAILY 04/06/20 04/07/20 History lisinopril 5 mg PO DAILY 04/06/20 04/07/20 History melatonin 2 mg PO HS PRN 04/06/20 04/07/20 History metoprolol succ
[2020-05-21] VITALS (8 sets, daily range): BP systolic 95–113; BP diastolic 52–87; PULSE 68–88; RESP 16–20; TEMP 36.3–36.5; O2SAT 94–99; BMI 21.7
[2020-05-21] MEDS: MELATONIN 3 MG TABLET PO ×2 (02:56→20:49)
[2020-05-21 06:16] LABS: Basophils Percent Auto 0.2 % (0.2-1.2); Eosinophils Percent Auto 0.6 % (0-4.4); Hemoglobin 9.5 g/dL (14.0-18.0); Immature Granulocyte Absolute 0.06 K/mm3 (0.00-0.031); Immature Granulocyte Percent A 0.9 % (0-0.5); Lymphocytes Absolute Auto 0.78 K/mm3 (0.9-3.2); Lymphocytes Percent Auto 11.7 % (18.3-44.2); Mean Corpuscular HGB Conc 31.7 g/dl (32-36); Mean Corpuscular Hemoglobin 28.4 pg (26-34); Mean Corpuscular Volume 89.8 fl (80-100); Mean Platelet Volume 11.5 fl (7.4-10.4); Monocytes Absolute Auto 0.5 K/mm3 (0.1-0.6); Neutrophils Absolute Auto 5.2 K/mm3 (1.3-6.7); Neutrophils Percent Auto 78.6 % (45.5-73.1); Platelet Count Result 159 k/mm3 (150-375); Red Blood Count 3.34 M/mm3 (4.6-6.20); Red Cell Distribution Width 15.8 % (11.5-14.5); White Blood Count 6.7 K/mm3 (4.5-10.0)
[2020-05-21 06:25] LABS: Anion Gap 4 mmol/L (8-16); Blood Urea Nitrogen 16 mg/dL (9-20); Carbon Dioxide 27 mmol/L (22-30); Chloride 99 mmol/L (98-107); Estimated CRCL calculation 48 ml/min; Estimated Glomerular Filt Rate > 60; Glucose 70 mg/dL (75-110); Magnesium 1.4 mg/dL (1.6-2.3); Potassium 3.9 mmol/L (3.4-5.0); Sodium 130 mmol/L (137-145)
[2020-05-21] MEDS: LEVOTHYROXINE SODIUM 50 MCG TABLET PO (07:54)
[2020-05-21] MEDS: LACTATED RINGERS 1,000 ML 100 ML IV CONT ×2 (08:57→19:58)
[2020-05-21] MEDS: ONDANSETRON INJ 4 MG/2 ML VIAL IV PUSH (09:22)
[2020-05-21] MEDS: APIXABAN 5 MG TABLET PO ×2 (11:13→17:10)
[2020-05-21] MEDS: FERROUS SULFATE 324 MG TABLET PO (11:13)
[2020-05-21] MEDS: FOLIC ACID 1 MG TABLET PO (11:13)
[2020-05-21] MEDS: FAMOTIDINE 20 MG TABLET PO (11:13)
[2020-05-21] MEDS: MAGNESIUM SULFATE 3GM/D5W100ML 3 GM/100 ML BAG IVPB (11:17)
--- NOTE | 2020-05-21 11:39 | ADMGEN ---
This patient, Pablo Medley, was admitted to [facility] Surg Room 304-01. Patient/family oriented to hospital policies and general routines including ID bracelet, bed and alarms, visiting hours, pain management, procedures, bathroom and other care routines, personal items, smoking policy, room service/diet, and visiting hours. Information on how to activate the Rapid Response Team has been discussed. Patient/Family are encouraged to report perceived risks to care and to ask questions if they do not understand what they are told or what they should do. Patient was admitted 05/20/2020 3194. Information reviewed at this time.
--- NOTE | 2020-05-21 14:00 | PM.IMPN ---
Progress Note: A&P Assessment and Plan (1) Nausea & vomiting: Code(s): R11.2 - Nausea with vomiting, unspecified Status: Acute Assessment and Plan: 05/21/20 14:00 Patient is 79 year male with history hypertension CABG on chronic anticoagulation with Eliquis, also patient was positive COVID-19 few months ago, was brought emergency department by his as patient is having nausea, vomiting and poor appetite and has lost close to 40 lb unfortunately patient is a poor historian unable to provide detailed review of symptom to further evaluate patient abdominal pain and a CT scan which showed Fusiform infrarenal aortic aneurysm up to 5.9 cm; consider prophylactic treatment. Bilateral common iliac artery aneurysms as well as Scattered regions of bibasilar peripheral consolidation consistent with subacute COVID pneumonia. Small bilateral pleural effusions. later I spoke with patient who is present in the room and informed her of aneurysm and upon discharge patient's will contact his primary care at [facility], we did try to contact his primary there was no answer, instructed to have them call me at the floor and page me. will continue zofran, and PPI, will consult GI for further recommendation and will plan. (2) Generalized weakness: Code(s): R53.1 - Weakness Status: Acute Assessment and Plan: Patient may slow recovery from COVID-19 will have a PT OT evaluate the patient patient will benefit going into rehab (3) Dehydration: Code(s): E86.0 - Dehydration Status: Acute Assessment and Plan: Gently hydrate the patient and monitor (4) Chronic anticoagulation: Code(s): Z79.01 - buttermaker (current) use of anticoagulants Status: Acute Assessment and Plan: Continue Eliquis (5) GERD (gastroesophageal reflux disease): Code(s): K21.9 - Gastro-esophageal reflux disease without esophagitis Status: Acute Assessment and Plan: Will continue PPI (6) BPH (benign prostatic hyperplasia): Code(s): N40.0 - Benign prostatic hyperplasia without lower urinary tract symptoms Status: Acute Assessment and Plan: Will continue home regimen (7) Hypothyroidism: Code(s): E03.9 - Hypothyroidism, unspecified Status: Acute Assessment and Plan: Will continue levothyroxine (8) Hyperlipidemia: Code(s): E78.5 - Hyperlipidemia, unspecified Status: Acute Assessment and Plan: Will continue statin Subjective Date/time seen: 05/21/20 14:00 Patient is 79 year male with history hypertension CABG on chronic anticoagulation with Eliquis, also patient was positive COVID-19 few months ago, was brought emergency department by his as patient is having nausea, vomiting and poor appetite and has lost close to 40 lb unfortunately patient is a poor historian unable to provide detailed review of symptom to further evaluate patient abdominal pain and a CT scan which showed Fusiform infrarenal aortic aneurysm up to 5.9 cm; consider prophylactic treatment. Bilateral common iliac artery aneurysms as well as Scattered regions of bibasilar peripheral consolidation consistent with subacute COVID pneumonia. Small bilateral pleural effusions. later I spoke with patient who is present in the room and informed her of aneurysm and upon discharge patient's will contact his primary care at [facility], we did try to contact his primary there was no answer, instructed to have them call me at the floor and page me. will continue zofran, and PPI, will consult GI for further recommendation and will plan. Review of Systems Review of Systems: ROS unobtainable: Yes unobtainable due to medical condition Exam Narrative: Exam Narrative: Elderly frail, appears chronically ill Patient is comfortable, NAD HEENT: eyes are clear and none icteric LUNGS:CTA HEART: RR S1S2 ABD: BS+, Soft and nontender Lower extremities: no edema SKIN: nonjaundiced N
[2020-05-21] MEDS: MEXILETINE HCL 150 MG CAPSULE 300 MG PO ×2 (15:55→20:49)
--- NOTE | 2020-05-21 16:42 | WPDGICN ---
Assessment and Plan Assessment and plan (1) Nausea & vomiting: Code(s): R11.2 - Nausea with vomiting, unspecified Status: Acute Assessment and Plan: ongoing, he was in the past on zofran and protonix with some relief but he is not longer taking will do EGD and assess for ulcers, esophagitis, etc he was told in the past that probably related to his antiarrhythmia medications (2) Anorexia: Code(s): R63.0 - Anorexia Status: Acute Assessment and Plan: egd tomorrow (3) Generalized weakness: Code(s): R53.1 - Weakness Status: Acute (4) Cardiac arrhythmia: Code(s): I49.9 - Cardiac arrhythmia, unspecified Status: Acute Assessment and Plan: on mexiletine and eliquis (5) Chronic anticoagulation: Code(s): Z79.01 - intermediate (current) use of anticoagulants Status: Acute (6) AAA (abdominal aortic aneurysm): Code(s): I71.4 - Abdominal aortic aneurysm, without rupture Status: Acute Assessment and Plan: new diagnosis, and patient aware and managed by primary team GI Consult Note Consult date/time: 05/21/20 16:42 Reason for consult: N/V, anorexia HPI: Pablo Medley is a 79 year old male with history of heart arrhythmia on amiodarone and mexiletine with nausea since 2019, initially thought to be secondary to those heart medications and dose was changed, also chronic anticoagulation with Eliquis, CAD here with progressive nausea and more vomiting last several days, also decrease appetite with weight loss. [facility] in [facility] but still feeling weak. Finally came to ER because abdominal discomfort and ongoing emesis. He has not had a recent EGD, had colonoscopy ~ 5 years ago at the [facility] (he normally goes there). CT abd/pelvis reviewed, showed fusiform infrarenal aortic aneurysm up to 5.9 cm and a moderate sized hiatal hernia. Also generalized weakness, now is at bedside and he is eating dinner. Hb 9.5, plat 150, Na 130 Review of Systems Constitutional: Constitutional: Reports fatigue Eyes: Eyes: Reports no additional eye complaints ENT: Reports system reviewed and no additional complaints, except as documented Cardiovascular: Cardiovascular: Denies chest pain Respiratory: Respiratory: Denies cough Gastrointestinal: Gastrointestinal: Reports nausea and Reports vomiting Genitourinary: Genitourinary: Denies dysuria Musculoskeletal: Musculoskeletal: Denies neck pain Integumentary/Breasts: Skin/Breast: Denies dry skin Neurologic: Denies headache(s) Psychiatric: Psychiatric: Reports no additional psychiatric complaints [facility] Past Medical History Medical History (Updated 05/21/20 @ 16:47 by Junior Collazo MD) AAA (abdominal aortic aneurysm) Anorexia Cardiac arrhythmia Social History Social History Smoking status: Former smoker Alcohol intake: never Substance use: never Gender identity (if verbalized by the patient): Male Spiritual care concerns: No Meds Home Medications and Allergies Home Medications Medication Instructions Recorded Confirmed Type acetaminophen [Tylenol] 325 mg PO ONCE 05/20/20 05/20/20 History apixaban [Eliquis] 5 mg PO BID 05/20/20 05/20/20 History atorvastatin 40 mg PO HS 05/20/20 05/20/20 History famotidine 20 mg PO DAILY 05/20/20 05/20/20 History ferrous sulfate 325 mg PO DAILY 05/20/20 05/20/20 History folic acid 1 mg PO DAILY 05/20/20 05/20/20 History levothyroxine 50 mcg PO DAILY 05/20/20 05/20/20 History melatonin 4 mg PO HS 05/20/20 05/21/20 History mexiletine 300 mg PO Q8H 05/20/20 05/20/20 History pantoprazole [Protonix] 20 mg PO HS 05/20/20 05/20/20 History polyethylene glycol 3350 [Miralax] 17 g PO DAILY PRN 05/20/20 05/20/20 History tamsulosin [Flomax] 0.4 mg PO HS 05/20/20 05/20/20 History Allergies Allergy/AdvReac Type Severity Reaction Status Date /
[2020-05-21] MEDS: ACETAMINOPHEN 325 MG TABLET 650 MG PO (17:09)
[2020-05-21] MEDS: PANTOPRAZOLE SOD SESQUIHYDRATE 20 MG TAB PO (20:49)
[2020-05-21] MEDS: TAMSULOSIN HCL 0.4 MG CAPSULE PO (20:49)
[2020-05-21] MEDS: ATORVASTATIN 40 MG TABLET PO (20:49)
[2020-05-22] VITALS (11 sets, daily range): BP systolic 79–122; BP diastolic 47–80; PULSE 70–95; RESP 14–21; TEMP 36.1–36.7; O2SAT 96–100
[2020-05-22] MEDS: LACTATED RINGERS 1,000 ML 100 ML IV CONT ×2 (04:29→20:00)
[2020-05-22] MEDS: ONDANSETRON INJ 4 MG/2 ML VIAL IV PUSH (04:29)
[2020-05-22] MEDS: MEXILETINE HCL 150 MG CAPSULE 300 MG PO ×3 (05:20→23:06)
[2020-05-22] MEDS: LEVOTHYROXINE SODIUM 50 MCG TABLET PO (05:20)
[2020-05-22] MEDS: ACETAMINOPHEN 325 MG TABLET 650 MG PO (05:22)
[2020-05-22 06:27] LABS: Alanine Aminotransferase 9 U/L (4-50); Albumin Level 2.5 g/dL (3.5-5.1); Alkaline Phosphatase 91 U/L (38-126); Anion Gap 4 mmol/L (8-16); Aspartate Amino Transferase 23 U/L (17-59); Bilirubin,Total 0.8 mg/dL (0.2-1.3); Blood Urea Nitrogen 14 mg/dL (9-20); Calcium 8.1 mg/dL (8.4-10.2); Carbon Dioxide 28 mmol/L (22-30); Chloride 99 mmol/L (98-107); Estimated CRCL calculation 52 ml/min; Estimated Glomerular Filt Rate > 60; Glucose 77 mg/dL (75-110); Magnesium 1.8 mg/dL (1.6-2.3); Potassium 3.8 mmol/L (3.4-5.0); Sodium 131 mmol/L (137-145)
[2020-05-22 06:46] LABS: Hematocrit 29.4 % (42.0-52.0); Hemoglobin 9.3 g/dL (14.0-18.0); Mean Corpuscular HGB Conc 31.6 g/dl (32-36); Mean Corpuscular Hemoglobin 28.7 pg (26-34); Mean Corpuscular Volume 90.7 fl (80-100); Mean Platelet Volume 11.6 fl (7.4-10.4); Platelet Count Result 144 k/mm3 (150-375); Red Blood Count 3.24 M/mm3 (4.6-6.20); Red Cell Distribution Width 15.9 % (11.5-14.5); White Blood Count 5.8 K/mm3 (4.5-10.0)
[2020-05-22] MEDS: LACTATED RINGERS 1,000 ML 150 ML IV CONT (12:53)
--- NOTE | 2020-05-22 12:56 | PM.IMPN ---
Progress Note: A&P Assessment and Plan (1) Nausea & vomiting: Code(s): R11.2 - Nausea with vomiting, unspecified Status: Acute Assessment and Plan: 05/22/20 12:56 Patient is 79 year male with history hypertension CABG on chronic anticoagulation with Eliquis, also patient was positive COVID-19 few months ago, was brought emergency department by his as patient is having nausea, vomiting and poor appetite and has lost close to 40 lb unfortunately patient is a poor historian unable to provide detailed review of symptom to further evaluate patient abdominal pain and a CT scan which showed Fusiform infrarenal aortic aneurysm up to 5.9 cm; consider prophylactic treatment. Bilateral common iliac artery aneurysms as well as Scattered regions of bibasilar peripheral consolidation consistent with subacute COVID pneumonia. Small bilateral pleural effusions. later I spoke with patient who is present in the room and informed her of aneurysm and upon discharge patient's will contact his primary care at [facility], we did try to contact his primary there was no answer, instructed to have them call me at the floor and page me. will continue zofran, and PPI, will consult GI for further recommendation and will plan. 05/22 today patient is little more communicative and feels better, Patient was seen GI suspect possible GERD gastritis related to his arrhythmia medications and scheduled for EGD later today, will follow up and further recommendation to follow up. (2) Generalized weakness: Code(s): R53.1 - Weakness Status: Acute Assessment and Plan: Patient may slow recovery from COVID-19 will have a PT OT evaluate the patient patient will benefit going into rehab (3) Dehydration: Code(s): E86.0 - Dehydration Status: Acute Assessment and Plan: Gently hydrate the patient and monitor (4) Chronic anticoagulation: Code(s): Z79.01 - termite control technician (current) use of anticoagulants Status: Acute Assessment and Plan: Continue Eliquis (5) GERD (gastroesophageal reflux disease): Code(s): K21.9 - Gastro-esophageal reflux disease without esophagitis Status: Acute Assessment and Plan: Will continue PPI (6) BPH (benign prostatic hyperplasia): Code(s): N40.0 - Benign prostatic hyperplasia without lower urinary tract symptoms Status: Acute Assessment and Plan: Will continue home regimen (7) Hypothyroidism: Code(s): E03.9 - Hypothyroidism, unspecified Status: Acute Assessment and Plan: Will continue levothyroxine (8) Hyperlipidemia: Code(s): E78.5 - Hyperlipidemia, unspecified Status: Acute Assessment and Plan: Will continue statin Subjective Date/time seen: 05/22/20 12:56 Patient is 79 year male with history hypertension CABG on chronic anticoagulation with Eliquis, also patient was positive COVID-19 few months ago, was brought emergency department by his as patient is having nausea, vomiting and poor appetite and has lost close to 40 lb unfortunately patient is a poor historian unable to provide detailed review of symptom to further evaluate patient abdominal pain and a CT scan which showed Fusiform infrarenal aortic aneurysm up to 5.9 cm; consider prophylactic treatment. Bilateral common iliac artery aneurysms as well as Scattered regions of bibasilar peripheral consolidation consistent with subacute COVID pneumonia. Small bilateral pleural effusions. later I spoke with patient who is present in the room and informed her of aneurysm and upon discharge patient's will contact his primary care at [facility], we did try to contact his primary there was no answer, instructed to have them call me at the floor and page me. will continue zofran, and PPI, will consult GI for further recommendation and will plan. 05/22 today patient is little more communicative and feels better, Patient was seen GI suspect possible FACUNDO
--- NOTE | 2020-05-22 13:12 | WPDANESEPPF ---
Anes - Initial Pre Proc Eval Procedure: Operation Date: 05/22/20 14:30 Proposed Procedures p Esophagogastroduodenoscopy - Junior Collazo MD Date/Time: 05/22/20 13:12 Surgeon: Puma Scott MD Pre Op Diagnosis: Nausea, vomiting, generalized weakness Patient Data Age: 79 Gender: M Height: 5 ft 10 in Weight: 68.6 kg Last Vital Signs Temp 96.9 F L 05/22/20 12:49 Pulse 88 05/22/20 12:49 Resp 18 05/22/20 12:49 BP 122/80 05/22/20 12:49 Pulse Ox 96 05/22/20 12:49 Allergies Allergy/AdvReac Type Severity Reaction Status Date / Time quetiapine [From Seroquel] AdvReac Hallucinati Verified 05/22/20 10:32 ng Home Medications Medication Instructions Recorded Confirmed Type apixaban 5 mg PO BID 04/06/20 04/07/20 History aspirin [Aspir-81] 81 mg PO DAILY 04/06/20 04/07/20 History atorvastatin 40 mg PO DAILY 04/06/20 04/07/20 History cholecalciferol (vitamin D3) 50 mcg PO DAILY 04/06/20 04/07/20 History dofetilide 125 mcg PO Q12H 04/06/20 04/07/20 History ferrous sulfate 325 mg PO DAILY 04/06/20 04/07/20 History levothyroxine 50 mcg PO DAILY 04/06/20 04/07/20 History lisinopril 5 mg PO DAILY 04/06/20 04/07/20 History melatonin 2 mg PO HS PRN 04/06/20 04/07/20 History metoprolol succinate 50 mg PO BID 04/06/20 04/07/20 History mexiletine 200 mg PO TID 04/06/20 04/07/20 History mirtazapine 15 mg PO DAILY 04/06/20 04/07/20 History polyethylene glycol 3350 17 g PO DAILY PRN 04/06/20 04/07/20 History spironolactone 12.5 mg PO DAILY 04/06/20 04/07/20 History acetaminophen [Tylenol] 325 mg PO ONCE 05/20/20 05/20/20 History apixaban [Eliquis] 5 mg PO BID 05/20/20 05/20/20 History atorvastatin 40 mg PO HS 05/20/20 05/20/20 History famotidine 20 mg PO DAILY 05/20/20 05/20/20 History ferrous sulfate 325 mg PO DAILY 05/20/20 05/20/20 History folic acid 1 mg PO DAILY 05/20/20 05/20/20 History levothyroxine 50 mcg PO DAILY 05/20/20 05/20/20 History melatonin 4 mg PO HS 05/20/20 05/21/20 History mexiletine 300 mg PO Q8H 05/20/20 05/20/20 History pantoprazole [Protonix] 20 mg PO HS 05/20/20 05/20/20 History polyethylene glycol 3350 [Miralax] 17 g PO DAILY PRN 05/20/20 05/20/20 History tamsulosin [Flomax] 0.4 mg PO HS 05/20/20 05/20/20 History Laboratory Tests 05/22/20 05/22/20 05:37 05:37 WBC 5.8 K/mm3 K/mm3 (4.5-10.0) RBC 3.24 M/mm3 L M/mm3 (4.6-6.20) Hgb 9.3 g/dL L g/dL (14.0-18.0) Hct 29.4 % L % (42.0-52.0) MCV 90.7 fl fl (80-100) MCH 28.7 pg pg (26-34) MCHC 31.6 g/dl L g/dl (32-36) RDW 15.9 % H % (11.5-14.5) Plt Count 144 k/mm3 L k/mm3 (150-375) MPV 11.6 fl H fl (7.4-10.4) Sodium 131 mmol/L L mmol/L (137-145) Potassium 3.8 mmol/L mmol/L (3.4-5.0) Chloride 99 mmol/L mmol/L (98-107) Carbon Dioxide 28 mmol/L mmol/L (22-30) Anion Gap 4 mmol/L L mmol/L (8-16) BUN 14 mg/dL mg/dL (9-20) Creatinine 1.00 mg/dL mg/dL (0.7-1.3) Estim Creat Clear Calc 52 ml/min ml/min Estimated GFR > 60 (59 - ) Glucose 77 mg/dL mg/dL (75-110) Calcium 8.1 mg/dL L mg/dL (8.4-10.2) Magnesium 1.8 mg/dL mg/dL (1.6-2.3) Total Bilirubin 0.8 mg/dL mg/dL (0.2-1.3) AST 23 U/L U/L (17-59) ALT 9 U/L U/L (4-50) Alkaline Phosphatase 91 U/L U/L (38-126) Total Protein 6.0 g/dL L g/dL (6.3-8.2) Albumin 2.5 g/dL L g/dL (3.5-5.1) Patient hx anesthesia problems: none Family hx anesthesia problems: none [facility] Past Medical History Medical History (Updated 05/22/20 @ 10:32 by Josee Linares) AAA (abdominal aortic aneurysm) Anorexia Atrial fibrillation With history of ablation in 2019. On chronic anticoagulation with Eliquis Cardiac arrhythmia CHF (congestive heart failure) Chronic constipation Coronary artery disease Diet-controlled diabetes mellitus Essential hypertension
--- NOTE | 2020-05-22 14:30 | PCPTNOTE ---
The patient treatment was not able to be completed due to patient out of room for procedure this afternoon. Will plan to continue treatment per plan of care.
[2020-05-22] MEDS: FAMOTIDINE 20 MG TABLET PO (15:54)
[2020-05-22] MEDS: FERROUS SULFATE 324 MG TABLET PO (15:55)
[2020-05-22] MEDS: FOLIC ACID 1 MG TABLET PO (15:55)
[2020-05-22] MEDS: SUCRALFATE SUSP 100 MG/ML 10 ML UDC 1000 MG PO ×2 (16:03→21:29)
[2020-05-22] MEDS: ATORVASTATIN 40 MG TABLET PO (20:07)
[2020-05-22] MEDS: PANTOPRAZOLE 40 MG TABLET PO (21:27)
[2020-05-22] MEDS: MELATONIN 3 MG TABLET PO (21:27)
[2020-05-22] MEDS: TAMSULOSIN HCL 0.4 MG CAPSULE PO (21:28)
[2020-05-23 05:49] VITALS: BP 123/80; PULSE 93; RESP 18; TEMP 36.2; O2SAT 97
[2020-05-23] MEDS: LACTATED RINGERS 1,000 ML 100 ML IV CONT (06:09)
[2020-05-23 06:13] VITALS: PULSE 93
[2020-05-23] MEDS: MEXILETINE HCL 150 MG CAPSULE 300 MG PO (06:13)
[2020-05-23] MEDS: LEVOTHYROXINE SODIUM 50 MCG TABLET PO (06:14)
[2020-05-23] MEDS: SUCRALFATE SUSP 100 MG/ML 10 ML UDC 1000 MG PO (06:15)
[2020-05-23 06:25] LABS: Hematocrit 28.5 % (42.0-52.0); Hemoglobin 9.1 g/dL (14.0-18.0); Immature Platelet Fraction Pct 6.1 % (0.9-11.2); Mean Corpuscular HGB Conc 31.9 g/dl (32-36); Mean Corpuscular Volume 90.8 fl (80-100); Mean Platelet Volume 11.2 fl (7.4-10.4); Platelet Count Result 140 k/mm3 (150-375); Red Blood Count 3.14 M/mm3 (4.6-6.20); Red Cell Distribution Width 15.9 % (11.5-14.5); White Blood Count 6.1 K/mm3 (4.5-10.0)
[2020-05-23 06:39] LABS: Alanine Aminotransferase 9 U/L (4-50); Albumin Level 2.4 g/dL (3.5-5.1); Alkaline Phosphatase 87 U/L (38-126); Anion Gap 4 mmol/L (8-16); Aspartate Amino Transferase 23 U/L (17-59); Bilirubin,Total 0.7 mg/dL (0.2-1.3); Blood Urea Nitrogen 12 mg/dL (9-20); Calcium 7.9 mg/dL (8.4-10.2); Carbon Dioxide 26 mmol/L (22-30); Chloride 100 mmol/L (98-107); Estimated CRCL calculation 58 ml/min; Estimated Glomerular Filt Rate > 60; Glucose 73 mg/dL (75-110); Magnesium 1.6 mg/dL (1.6-2.3); Potassium 3.9 mmol/L (3.4-5.0); Sodium 130 mmol/L (137-145)
[2020-05-23] MEDS: ONDANSETRON INJ 4 MG/2 ML VIAL IV PUSH (09:01)
[2020-05-23] MEDS: FOLIC ACID 1 MG TABLET PO (09:04)
[2020-05-23] MEDS: FAMOTIDINE 20 MG TABLET PO (09:04)
[2020-05-23] MEDS: PANTOPRAZOLE 40 MG TABLET PO (09:05)
[2020-05-23] MEDS: FERROUS SULFATE 324 MG TABLET PO (09:05)
--- NOTE | 2020-05-23 09:16 | WPDANESPN ---
Anes - Prog Note Post-Op Date/Time: 05/23/20 09:16 Cardiovascular status: normal Respiratory status: normal Airway patency: baseline Mental status: baseline Post-Op hydration status: normal Vital Signs: Last Vital Signs Temp 97.2 F L 05/23/20 05:49 Pulse 93 05/23/20 06:13 Resp 18 05/23/20 05:49 BP 123/80 05/23/20 05:49 Pulse Ox 97 05/23/20 05:49 Pain Score (VAS): 2/10 I/O: Intake & Output 05/22/20 05/23/20 05/23/20 23:59 07:59 15:59 Intake Total 1480 1120 Output Total 300 200 Balance 1180 920 Laboratory Tests 05/23/20 05:40 05/23/20 05:40 05/23/20 05/23/20 05/23/20 00:07 05:40 05:40 WBC 6.1 RBC 3.14 L Hgb 9.1 L Hct 28.5 L MCV 90.8 MCH 29.0 MCHC 31.9 L RDW 15.9 H Plt Count 140 L MPV 11.2 H % Immature Plt Fraction 6.1 Sodium 130 L Potassium 3.9 Chloride 100 Carbon Dioxide 26 Anion Gap 4 L BUN 12 Creatinine 0.90 Estim Creat Clear Calc 58 Estimated GFR > 60 Glucose 73 L Calcium 7.9 L Magnesium 1.6 Total Bilirubin 0.7 AST 23 ALT 9 Alkaline Phosphatase 87 Total Protein 6.0 L Albumin 2.4 L SARS-CoV-2 RNA (RT-PCR) Pending Patient Feedback: Patient satisfied with anesthetic care.
--- NOTE | 2020-05-23 10:22 | WPDGIPROGNO ---
Progress Note: A&P Assessment and Plan (1) Nausea & vomiting: Code(s): R11.2 - Nausea with vomiting, unspecified Status: Acute Assessment and Plan: probably partially due to EGD findings (ring was dilated), also had hiatal hernia with esophagitis and gastritis. Will need protonix bid (or equivalent), also carafate antiemetics as needed (some of hsi meds could be contributing to his nausea) (2) Esophageal ring: Code(s): K22.2 - Esophageal obstruction Status: Acute Assessment and Plan: egd in 2 months to dilate again (3) Esophagitis: Code(s): K20.90 - Esophagitis, unspecified without bleeding Status: Acute Assessment and Plan: ppi bid and carafate (4) Gastritis: Code(s): K29.70 - Gastritis, unspecified, without bleeding Status: Acute (5) Hiatal hernia: Code(s): K44.9 - Diaphragmatic hernia without obstruction or gangrene Status: Acute (6) Cardiac arrhythmia: Code(s): I49.9 - Cardiac arrhythmia, unspecified Status: Acute (7) Chronic anticoagulation: Code(s): Z79.01 - correction (current) use of anticoagulants Status: Chronic Assessment and Plan: ok to resume tomorrow (8) Generalized weakness: Code(s): R53.1 - Weakness Status: Acute Subjective Date/time seen: 05/23/20 10:22 Interval history: still poor appetite. EGD yesterday with dilation of esophageal ring, also had gastritis and esophagitis Review of Systems Review of Systems: All systems reviewed & are unremarkable except as noted in HPI and below Exam Const: General: no acute distress and ill appearing chronically HENMT: General nose exam: Normal nares present Eyes: General: appearance normal, both eyes and all related structures Neck: Neck: supple Resp: Auscultation: clear to auscultation bilaterally Cardio: Rate: regular rate GI: GI Palp: Yes Soft to palpation, No Firmness to palpation present (GI) and No Guarding due to palpation present (GI) Auscultation: normal bowel sounds Skin: General skin exam: normal color Neuro: Speech: normal speech Extrem: General: normal exam except as noted Psych: Other: flat affect Objective Data Vital Signs Vital Signs: Vital Signs - 24 hr 05/22/20 12:49 05/22/20 14:00 05/22/20 14:10 Temperature 96.9 F L Pulse Rate 88 78 78 Respiratory Rate 18 21 H 14 Blood Pressure 122/80 85/55 L 79/47 L Pulse Oximetry 96 98 96 05/22/20 14:20 05/22/20 14:31 05/22/20 15:52 Temperature Pulse Rate 72 70 87 Respiratory Rate 14 20 Blood Pressure 90/51 L 106/58 L Pulse Oximetry 96 96 05/22/20 16:00 05/22/20 21:29 05/22/20 23:02 Temperature 97.7 F 97.9 F Pulse Rate 92 88 95 Respiratory Rate 18 18 Blood Pressure 117/74 112/70 98/52 L Pulse Oximetry 99 96 05/22/20 23:06 05/23/20 05:49 05/23/20 06:13 Temperature 97.2 F L Pulse Rate 95 93 93 Respiratory Rate 18 Blood Pressure 123/80 Pulse Oximetry 97 Intake/Output Intake/Output: Intake & Output 05/20/20 05/21/20 05/22/20 05/23/20 23:59 23:59 23:59 23:59 Intake Total 500 2755 2720 1120 Output Total 400 600 200 Balance 500 2355 2120 920 Meds/Results Medications: Active Medications Generic Name Dose Route Start Last Admin Trade Name Luca PRN Reason Stop Dose Admin Acetaminophen 650 mg 05/21/20 01:59 05/22/20 05:22 Acetaminophen 325 Mg Tablet PO 650 mg Q4H PRN Administration Mild Pain (1-3) or Fever Atorvastatin Calcium 40 mg 05/21/20 21:00 05/22/20 20:07 Atorvastatin 40 Mg Tablet PO 40 mg HS [facility]LIN Administration Famotidine 20 mg 05/21/20 09:00 05/23/20 09:04 Famotidine 20 Mg Tablet PO 20 mg DAILY [place]LIN Administration Ferrous Sulfate 324 mg 05/21/20 08:00 05/23/20 09:05 Ferrous Sulfate 324 Mg Tablet PO 324 mg DAILY@0800 [facility] Administration Folic Acid 1 mg 05/21/20 09:00 05/23/20 09:04 Folic Acid 1 Mg Tablet PO 1 mg DAILY [facility]
--- NOTE | 2020-05-23 11:43 | PM.DS ---
DS: Admitting Diagnosis Admitting Diagnosis Admitting Diagnosis: Nausea or vomiting DS: Discharge Diagnosis Discharge Diagnosis (1) Nausea & vomiting: Code(s): R11.2 - Nausea with vomiting, unspecified Status: Acute Assessment and Plan: r/o dyspepsia, GERD, gastritis. The patient has been placed in observation status. NPO overnight. Bowel rest. Antiemetics as needed. GI consult in am. (2) Generalized weakness: Code(s): R53.1 - Weakness Status: Acute Assessment and Plan: Likely secondary to deconditioning, chronic illnesses, and dehydration. PT/OT evaluation when appropriate. (3) Dehydration: Code(s): E86.0 - Dehydration Status: Acute Assessment and Plan: Continue IV hydration overnight. Monitor urine output and vital signs. (4) Chronic anticoagulation: Code(s): Z79.01 - custodial (current) use of anticoagulants Status: Chronic Assessment and Plan: Resume Eliquis in am. (5) GERD (gastroesophageal reflux disease): Code(s): K21.9 - Gastro-esophageal reflux disease without esophagitis Status: Chronic Assessment and Plan: Continue pepcid and protonix PO. (6) BPH (benign prostatic hyperplasia): Code(s): N40.0 - Benign prostatic hyperplasia without lower urinary tract symptoms Status: Chronic Assessment and Plan: Continue flomax PO in am. (7) Hypothyroidism: Code(s): E03.9 - Hypothyroidism, unspecified Status: Chronic Assessment and Plan: Continue levothyroxine PO am. (8) Hyperlipidemia: Code(s): E78.5 - Hyperlipidemia, unspecified Status: Chronic Assessment and Plan: Continue atorvastatin PO in am. DS: Summary Hospital Course Reason for hospitalization: Chief Complaint: nausea and vomiting+ Narrative: This is a 79 year old male with known history of chronic anticoagulation with Eliquis for an unknown reason, hypothyroidism, and CAD+ s/p CABG who presented to the hospital with his secondary to ongoing nausea and vomiting. The patient reports chronic nausea, vomiting, poor appetite, and a 40 pound weight loss. [facility] and his had him discharged home as he was not getting better. Tonight in the ER he was complaining of LLQ abdominal pain. He reports 3-4 episodes of vomiting today. He complains of feeling hungry until someone brings him food and then he doesn't want to eat it and started to feel nauseated. CT abd/pelvis was obtained which demonstrated a fusiform infrarenal aortic aneurysm up to 5.9 cm and a moderate sized hiatal hernia. He denies any past history of abdominal aortic aneurysm. On my encounter with this tonight he currently denies any further abdominal pain. He also denies any fevers, chills, headache, chest pain, shortness of breath, cough, abdominal pain, dysuria, hematuria, diarrhea, rectal bleeding, black stools, or LE swelling. He does however report extreme generalized weakness and feeling tired. We have been asked to admit the patient to the hospital for IV fluids as he has not been able to keep down any fluids. No other complaints. The patient does not know his own medical history and states that his knows his medical conditions and medicines. Apparently the patient just had COVID pneumonia a few months ago. Hospital Course: Patient is 79 year male with history hypertension CABG on chronic anticoagulation with Eliquis, also patient was positive COVID-19 few months ago, was brought emergency department by his as patient is having nausea, vomiting and poor appetite and has lost close to 40 lb unfortunately patient is a poor historian unable to provide detailed review of symptom to further evaluate patient abdominal pain and a CT scan which showed Fusiform infrarenal aortic aneurysm up to 5.9 cm; consider prophylactic treatment. Bilateral common iliac artery aneurysms as well as Scattere
[2020-05-23 16:42] LABS: SARS-CoV-2 RNA PCR Negative
== END 2020-05-23 12:45 | disposition home health service (06) | DRG 392 ==
LOC: ANHED 18:05 → ANH3MEDSUR 21:13
PROVIDERS: Internal Medicine Gastroenterology; Admitting Provider Family Medicine; Emergency Provider Emergency Medicine; Visit Provider Family Medicine
PROC: 0DJ08ZZ Inspection of Upper Intestinal Tract, Via Natural or Artificial Opening Endoscopic (ICD-10-PCS; CPT 43235; principal; 2020-05-22 14:30)
DX: K21.00 Gastro-esophageal reflux disease with esophagitis, without bleeding (principal); I71.4 Abdominal aortic aneurysm, without rupture; I72.3 Aneurysm of iliac artery; K44.9 Diaphragmatic hernia without obstruction or gangrene; K22.2 Esophageal obstruction; R13.19 Other dysphagia; K29.70 Gastritis, unspecified, without bleeding; R63.4 Abnormal weight loss; Z20.822 Contact with and (suspected) exposure to COVID-19; I48.91 Unspecified atrial fibrillation; I49.9 Cardiac arrhythmia, unspecified; E55.9 Vitamin D deficiency, unspecified; D50.9 Iron deficiency anemia, unspecified; R63.0 Anorexia; R53.1 Weakness; E86.0 Dehydration; E03.9 Hypothyroidism, unspecified; I25.5 Ischemic cardiomyopathy; G47.33 Obstructive sleep apnea (adult) (pediatric); I11.0 Hypertensive heart disease with heart failure; I50.9 Heart failure, unspecified; I25.10 Atherosclerotic heart disease of native coronary artery without angina pectoris; E11.9 Type 2 diabetes mellitus without complications; E78.5 Hyperlipidemia, unspecified; N40.0 Benign prostatic hyperplasia without lower urinary tract symptoms; Z79.01 Long term (current) use of anticoagulants; Z79.899 Other long term (current) drug therapy; Z86.16 Personal history of COVID-19; Z87.891 Personal history of nicotine dependence; Z95.1 Presence of aortocoronary bypass graft; Z95.810 Presence of automatic (implantable) cardiac defibrillator
CPT/HCPCS: 36415; 51701; 71045; 74177; 80048; 80053; 81001; 83605; 83690; 83735; 85025; 85027; 85055; 88305; 88313; 88342; 93005; 96361; 96375; 96376; 97110; 97161; 97165; 97530; 97535; 99285; A9270; C1726; C9803; G0378; J2001; J2405; J2704; J3475; J7040; J7120; Q9967; U0003; U0005

== ENCOUNTER 2020-05-30 21:23 | Inpatient (IN) | payer MEDICARE, OTHER, SELFPAY ==
[2020-05-30] VITALS (20 sets, daily range): BP systolic 98–132; BP diastolic 61–115; PULSE 100–106; RESP 12–28; TEMP 36.8; O2SAT 90–98
--- NOTE | ~2020-05-30 | XR_ITS ---
EXAMINATION: XR chest 1V portable DATE: 06/01/2020 15:53 INDICATION: Cough and shortness of breath. TECHNIQUE: A single frontal view of the chest was obtained. COMPARISON: Chest single view 05/20/2020, CT abdomen and pelvis 05/20/2020 FINDINGS: There are patchy airspace opacities in all lung zones bilaterally. There is mild scarring a t the lung apices. No pleural effusion or pneumothorax. Cardiomegaly is noted. Median sternotomy wire s and mediastinal surgical clips are seen, likely from prior coronary artery bypass grafting. There i s a left chest pacer with leads in right atrium and right ventricle. There is an additional lead in r ight ventricle. IMPRESSION: 1. Worsened diffuse lung disease, consistent with pneumonia. 2. Cardiomegaly. Reviewed, dictated and finalized at location A.
--- NOTE | 2020-05-30 21:53 | ED.WEAKNESS ---
HPI - Weakness General Chief complaint: Weakness Stated complaint: sick x 1 week when last seen here Time Seen by Provider: 05/30/20 21:52 History of Present Illness HPI Narrative: Nausea and weakness for the past week. His reports that this started after he was discharged from the hospital last week. She believes that this is due to mexiletine, which she claims we started while he was in the hospital. This is not entirely acurate. I saw him in the ED on 05/20 for the same complaints. Even at that time they reported isra the symptoms had been present for some time. I believe that the medication in question was already on his med list prior to being admitted t the hospital last time. The patient is not able to provide any helpful information about his history or symptoms. Related Data Home Medications Medication Instructions Recorded Confirmed apixaban 5 mg PO BID 04/06/20 04/07/20 aspirin 81 mg PO DAILY 04/06/20 04/07/20 atorvastatin 40 mg PO DAILY 04/06/20 04/07/20 cholecalciferol (vitamin D3) 50 mcg PO DAILY 04/06/20 04/07/20 dofetilide 125 mcg PO Q12H 04/06/20 04/07/20 ferrous sulfate 325 mg PO DAILY 04/06/20 04/07/20 levothyroxine 50 mcg PO DAILY 04/06/20 04/07/20 lisinopril 5 mg PO DAILY 04/06/20 04/07/20 melatonin 2 mg PO HS PRN 04/06/20 04/07/20 metoprolol succinate 50 mg PO BID 04/06/20 04/07/20 mexiletine 200 mg PO TID 04/06/20 04/07/20 polyethylene glycol 3350 17 g PO DAILY PRN 04/06/20 04/07/20 spironolactone 12.5 mg PO DAILY 04/06/20 04/07/20 Eliquis 5 mg PO BID 05/20/20 05/20/20 acetaminophen [Tylenol] 325 mg PO ONCE 05/20/20 05/20/20 atorvastatin 40 mg PO HS 05/20/20 05/20/20 ferrous sulfate 325 mg PO DAILY 05/20/20 05/20/20 folic acid 1 mg PO DAILY 05/20/20 05/20/20 levothyroxine 50 mcg PO DAILY 05/20/20 05/20/20 melatonin 4 mg PO HS 05/20/20 05/21/20 mexiletine 300 mg PO Q8H 05/20/20 05/20/20 polyethylene glycol 3350 [Miralax] 17 g PO DAILY PRN 05/20/20 05/20/20 tamsulosin [Flomax] 0.4 mg PO HS 05/20/20 05/20/20 Allergies Allergy/AdvReac Type Severity Reaction Status Date / Time quetiapine [From Seroquel] AdvReac Hallucinati Verified 05/30/20 23:27 ng Review of Systems Review of Systems: ROS unobtainable: Yes unobtainable due to mental status PMFSH Past Medical History Medical History AAA (abdominal aortic aneurysm) Anorexia Atrial fibrillation With history of ablation in 2019. On chronic anticoagulation with Eliquis Cardiac arrhythmia CHF (congestive heart failure) Chronic constipation Coronary artery disease Diet-controlled diabetes mellitus Esophageal ring Esophagitis Essential hypertension Gastritis Hiatal hernia Hyperlipidemia Hypertension Hypothyroidism Iron deficiency anemia Ischemic cardiomyopathy with implantable cardioverter-defibrillator (ICD) Obstructive sleep apnea on CPAP Vitamin D deficiency Surgical History Surgical History AICD (automatic cardioverter/defibrillator) present 03/04/2020 H/O inguinal hernia repair Due to incarcerated hernia as a child Hx of CABG 03/04/2020 at [facility] Hx of tonsillectomy Family History Family History Father Cerebrovascular accident Diabetes mellitus Esophageal cancer Social History Social History Social History: Primary care physician: [facility] Code status: Full code Smoking packs per day: 2.5 Smoking cigarettes per day: 50.0 Years smoked: 30 Smoking pack-years: 75.00 Smoking status: Former smoker Alcohol intake: never Substance use: never Gender identity (if verbalized by the patient): Male Spiritual care concerns: No Exam Const: General: no acute distress, alert and ill appearing HENMT: Head: normal to inspection Resp:
[2020-05-30 22:49] LABS: Eosinophils Percent Auto 0.4 % (0-4.4); Hematocrit 32.9 % (42.0-52.0); Hemoglobin 10.5 g/dL (14.0-18.0); Immature Granulocyte Absolute 0.05 K/mm3 (0.00-0.031); Immature Granulocyte Percent A 0.7 % (0-0.5); Lymphocytes Absolute Auto 0.63 K/mm3 (0.9-3.2); Lymphocytes Percent Auto 8.2 % (18.3-44.2); Mean Corpuscular HGB Conc 31.9 g/dl (32-36); Mean Corpuscular Hemoglobin 28.8 pg (26-34); Mean Corpuscular Volume 90.4 fl (80-100); Mean Platelet Volume 11.2 fl (7.4-10.4); Monocytes Absolute Auto 0.4 K/mm3 (0.1-0.6); Monocytes Percent Auto 5.2 % (2.6-8.5); Neutrophils Absolute Auto 6.6 K/mm3 (1.3-6.7); Neutrophils Percent Auto 85.5 % (45.5-73.1); Platelet Count Result 181 k/mm3 (150-375); Red Blood Count 3.64 M/mm3 (4.6-6.20); Red Cell Distribution Width 16.1 % (11.5-14.5); White Blood Count 7.7 K/mm3 (4.5-10.0)
[2020-05-30] MEDS: SODIUM CHLORIDE 0.9% IV 1,000 ML 999 ML IV CONT (23:05)
[2020-05-30] MEDS: ONDANSETRON INJ 4 MG/2 ML VIAL IV PUSH (23:05)
[2020-05-30 23:11] LABS: Alanine Aminotransferase 12 U/L (4-50); Albumin Level 2.8 g/dL (3.5-5.1); Alkaline Phosphatase 99 U/L (38-126); Anion Gap 4 mmol/L (8-16); Aspartate Amino Transferase 25 U/L (17-59); Bilirubin,Total 0.8 mg/dL (0.2-1.3); Blood Urea Nitrogen 15 mg/dL (9-20); Calcium 8.5 mg/dL (8.4-10.2); Carbon Dioxide 29 mmol/L (22-30); Chloride 100 mmol/L (98-107); Estimated CRCL calculation 51 ml/min; Estimated Glomerular Filt Rate > 60; Glucose 99 mg/dL (75-110); Lipase 27 U/L (23-300); Sodium 133 mmol/L (137-145)
[2020-05-31] VITALS (28 sets, daily range): BP systolic 93–114; BP diastolic 64–83; PULSE 95–111; RESP 13–28; TEMP 36.2–37.1; O2SAT 93–96; BMI 22.8
[2020-05-31 01:00] LABS: Add Urine Microscopic? YES; Appearance Urine Cloudy (Clear); Bacteria Urine Trace /hpf; Bilirubin Urine Negative (Negative); Blood Urine Negative (Negative); Color Urine Amber (Yellow); Glucose Urine UA Negative (Negative); Ketones Urine Trace mg/dL (Negative); Leukocyte Esterase Ur Trace LEU/UL (Negative); Mucus Urine Rare /lpf; Nitrate Urine Negative (Negative); Protein Urine 1+ mg/dL (Negative); Specific Grav Ur 1.024 (1.001-1.035); Squamous Epithelial Cell Urine Rare /hpf (Few); WBC Urine 16-20 /hpf
[2020-05-31] MEDS: LACTATED RINGERS 1,000 ML 100 ML IV CONT (03:10)
--- NOTE | 2020-05-31 03:29 | PM.IMHP ---
H&P: HPI History of Present Illness Date/Time: 05/31/20 03:29 Chief Complaint: Nausea and vomiting Narrative: This is a 79 year old male with known history of chronic anticoagulation with Eliquis for atrial fibrillation, hypothyroidism, and CAD+ s/p CABG who presented to the hospital with his secondary to ongoing nausea and vomiting. The patient was just on our hospital service and discharged home. His brought him back tonight stating that the patient has not been eating and has had ongoing nausea and vomiting. The patient is severely demented and denies any complaints on my encounter with him. He also denies any fevers, chills, headache, chest pain, shortness of breath, cough, abdominal pain, dysuria, hematuria, diarrhea, rectal bleeding, black stools, or LE swelling. He does however report extreme generalized weakness and feeling tired. No other complaints. The patient does not know his own medical history. Review of Systems Review of Systems: All systems reviewed & are unremarkable except as noted in HPI and below PMFSH Past Medical History Medical History AAA (abdominal aortic aneurysm) Anorexia Atrial fibrillation With history of ablation in 2019. On chronic anticoagulation with Eliquis Cardiac arrhythmia CHF (congestive heart failure) Chronic constipation Coronary artery disease Diet-controlled diabetes mellitus Esophageal ring Esophagitis Essential hypertension Gastritis Hiatal hernia Hyperlipidemia Hypertension Hypothyroidism Iron deficiency anemia Ischemic cardiomyopathy with implantable cardioverter-defibrillator (ICD) Obstructive sleep apnea on CPAP Vitamin D deficiency Surgical History Surgical History AICD (automatic cardioverter/defibrillator) present 03/04/2020 H/O inguinal hernia repair Due to incarcerated hernia as a child Hx of CABG 03/04/2020 at [facility] Hx of tonsillectomy Family History Family History Father Cerebrovascular accident Diabetes mellitus Esophageal cancer Social History Social History Social History: Primary care physician: [facility] Code status: Full code Smoking packs per day: 2.5 Smoking cigarettes per day: 50.0 Years smoked: 30 Smoking pack-years: 75.00 Smoking status: Former smoker Alcohol intake: never Substance use: never Gender identity (if verbalized by the patient): Male Spiritual care concerns: No Meds Home Medications and Allergies Home Medications Medication Instructions Recorded Confirmed Type apixaban 5 mg PO BID 04/06/20 05/31/20 History aspirin 81 mg PO DAILY 04/06/20 05/31/20 History cholecalciferol (vitamin D3) 50 mcg PO DAILY 04/06/20 05/31/20 History dofetilide 125 mcg PO Q12H 04/06/20 05/31/20 History lisinopril 5 mg PO DAILY 04/06/20 05/31/20 History melatonin 2 mg PO HS PRN 04/06/20 05/31/20 History metoprolol succinate 50 mg PO BID 04/06/20 05/31/20 History spironolactone 12.5 mg PO DAILY 04/06/20 05/31/20 History atorvastatin 40 mg PO HS 05/20/20 05/31/20 History ferrous sulfate 325 mg PO DAILY 05/20/20 05/31/20 History folic acid 1 mg PO DAILY 05/20/20 05/31/20 History levothyroxine 50 mcg PO DAILY 05/20/20 05/31/20 History mexiletine 300 mg PO Q8H 05/20/20 05/31/20 History polyethylene glycol 3350 [Miralax] 17 g PO DAILY PRN 05/20/20 05/31/20 History tamsulosin [Flomax] 0.4 mg PO HS 05/20/20 05/31/20 History mirtazapine [Remeron] 15 mg PO DAILY #30 tablet 05/23/20 05/31/20 Rx pantoprazole 40 mg PO Q12HR #60 tablet 05/23/20 05/31/20 Rx sucralfate 1,000 mg PO ACHS #1000 ml 05/23/20 05/31/20 Rx Allergies Allergy/AdvReac Type Severity Reaction Status Date / Time quetiapine [From Seroquel] AdvReac Hallucinati Verified 05/31/20 11:52 ng
--- NOTE | 2020-05-31 03:49 | ADMGEN ---
This patient, Pablo Medley, was admitted to [facility] Surg Room 321-02. Patient/family oriented to hospital policies and general routines including ID bracelet, bed and alarms, visiting hours, pain management, procedures, bathroom and other care routines, personal items, smoking policy, room service/diet, and visiting hours. Information on how to activate the Rapid Response Team has been discussed. Patient/Family are encouraged to report perceived risks to care and to ask questions if they do not understand what they are told or what they should do.
[2020-05-31 04:49] LABS: Glucose Point of Care 79 (65-105)
--- NOTE | 2020-05-31 16:34 | PM.IMPN ---
Progress Note: A&P Assessment and Plan (1) Nausea & vomiting: Code(s): R11.2 - Nausea with vomiting, unspecified Status: Resolved Assessment and Plan: The patient apparently had ongoing nausea and vomiting issues. Hospitalized here last week with similar symptoms. COuld still be related to the gastritis. Symptoms seem to be better. Follow for now. COnsider appetite stimulant. Add supplements. Change to soft, bite sized meals. Start PT/OT. (2) Chronic anemia: Code(s): D64.9 - Anemia, unspecified Status: Chronic Assessment and Plan: Hgb 10.5 on admission. Over his last few visists, Hgb runs mostly 9-11 range. Possibly anemia of chronic disease. No signs of acute blood loss. Monitor H/H and transfuse prn. Check iron studies, B12. (3) Gastritis: Code(s): K29.70 - Gastritis, unspecified, without bleeding Status: Acute Assessment and Plan: Stable. May still be contributing to his n/v. Will continue Protonix and Carafate. (4) Atrial fibrillation: Code(s): I48.91 - Unspecified atrial fibrillation Status: Inactive Assessment and Plan: No EKG on admission but appears to be regular. Continue Metoprolol succinate 50mg but decrease to daily (from BID) given the soft BP. Resume apixaban. (5) Ventricular tachycardia: Code(s): I47.2 - Ventricular tachycardia Status: Acute Assessment and Plan: Patient has a history of ventricular tachycardia with history of defibrillator firing. states patient no longer on mexiletine (and possibly Dofetilide) but this cannot be verified. Attempted to call [facility] and [facility] pharmacist but no one available at this time. Reluctant to stop these medications knowing his history. Will continue for now and have patient follow-up with contract negotiation specialist for further clarification. (6) AAA (abdominal aortic aneurysm): Code(s): I71.4 - Abdominal aortic aneurysm, without rupture Status: Acute Assessment and Plan: CT scan May 20 showing fusiform infrarenal aortic aneurysm up to 5.9 cm. was instructed to follow up with the patient's doctor at the [place] to arrange for vascular surgery evaluation. This was reinforced. (7) DVT prophylaxis: Code(s): Z29.9 - Encounter for prophylactic measures, unspecified Status: Acute Assessment and Plan: SCDs Subjective Date/time seen: 05/31/20 16:34 Interval history: 79-year-old male with AFib, dementia and diabetes here for nausea vomiting. Patient is alert but confused. He denies any problems overnight. He denies any nausea vomiting. states patient has been sleeping most of the day today but nurse as the patient was up earlier today. No complaints of abdominal pain. No chest. Patient was admitted [facility] on March 04 and had a 3 vessel CABG and ICD placed. Patient was hospitalized here on April 07 after his defibrillator fired x4. At that time he was on mexiletine and dofetilide. He was seen by cardiology. He was transferred to [facility] hospital for EP evaluation. Patient was transferred to a SNF and eventually discharged back home. Rhoda returned to our hospital on 05/20 for n/v. CT A/P showing 5.9cm aneurysm. Home meds again listed mexiletine and dofetilide. Seen by GI with EGD showing reflux esophagitis Grade III, esophageal ring that was dilated and moderate to severe diffuse gastritis. N/V felt related to the EGD findings. at bedisde today and states that the felician no longer takes mexilitine since before his CABG surgery and she feels this med is causing his nausea. She also states the patient 'hasn't been the same' since his CABG procedure. She denies that he has been diagnosed with dementia. [facility] phone numbers given but no answer at PCP or pharmacy numbers. Exam Narrative: Exam Narrative: AF 98.4 102/70 100 18 95% ra Gen - NARD Chest - bibasilar inspiratory crackles, nml RR CV -
[2020-05-31] MEDS: MIRTAZAPINE 15 MG TABLET PO (18:06)
[2020-05-31] MEDS: APIXABAN 5 MG TABLET PO (18:06)
[2020-05-31] MEDS: MEXILETINE HCL 150 MG CAPSULE 300 MG PO (20:05)
[2020-05-31] MEDS: ATORVASTATIN 40 MG TABLET PO (20:07)
[2020-05-31] MEDS: PANTOPRAZOLE 40 MG TABLET PO (20:07)
[2020-05-31] MEDS: SUCRALFATE SUSP 100 MG/ML 10 ML UDC 1000 MG PO (20:10)
--- NOTE | 2020-05-31 20:32 | PHAR ---
HOME MED VERIFIED DOFETILIDE 125MCG EVERY 12 HOURS
[2020-05-31] MEDS: TAMSULOSIN HCL 0.4 MG CAPSULE PO (21:38)
[2020-05-31] MEDS: MELATONIN 3 MG TABLET PO (23:53)
[2020-06-01] VITALS (9 sets, daily range): BP systolic 100–110; BP diastolic 61–81; PULSE 76–110; RESP 20; TEMP 35.9–36.6; O2SAT 94–97
[2020-06-01] MEDS: MEXILETINE HCL 150 MG CAPSULE 300 MG PO ×3 (06:02→20:45)
[2020-06-01] MEDS: LEVOTHYROXINE SODIUM 50 MCG TABLET PO (06:03)
[2020-06-01] MEDS: SUCRALFATE SUSP 100 MG/ML 10 ML UDC 1000 MG PO ×3 (06:07→17:00)
[2020-06-01 06:35] LABS: Basophils Percent Auto 0.1 % (0.2-1.2); Eosinophils Absolute Auto 0.1 K/mm3 (0-0.3); Eosinophils Percent Auto 0.9 % (0-4.4); Hematocrit 32.4 % (42.0-52.0); Hemoglobin 10.1 g/dL (14.0-18.0); Immature Granulocyte Absolute 0.06 K/mm3 (0.00-0.031); Immature Granulocyte Percent A 0.7 % (0-0.5); Lymphocytes Absolute Auto 0.71 K/mm3 (0.9-3.2); Lymphocytes Percent Auto 8.8 % (18.3-44.2); Mean Corpuscular HGB Conc 31.2 g/dl (32-36); Mean Corpuscular Volume 89.8 fl (80-100); Mean Platelet Volume 10.9 fl (7.4-10.4); Monocytes Absolute Auto 0.4 K/mm3 (0.1-0.6); Monocytes Percent Auto 4.3 % (2.6-8.5); Neutrophils Absolute Auto 6.9 K/mm3 (1.3-6.7); Neutrophils Percent Auto 85.2 % (45.5-73.1); Platelet Count Result 195 k/mm3 (150-375); Red Blood Count 3.61 M/mm3 (4.6-6.20); Red Cell Distribution Width 16.2 % (11.5-14.5); White Blood Count 8.1 K/mm3 (4.5-10.0)
[2020-06-01 06:47] LABS: Anion Gap 6 mmol/L (8-16); Blood Urea Nitrogen 15 mg/dL (9-20); Calcium 8.2 mg/dL (8.4-10.2); Carbon Dioxide 27 mmol/L (22-30); Chloride 100 mmol/L (98-107); Estimated CRCL calculation 55 ml/min; Estimated Glomerular Filt Rate > 60; Glucose 82 mg/dL (75-110); Potassium 3.8 mmol/L (3.4-5.0); Sodium 133 mmol/L (137-145)
[2020-06-01 07:23] LABS: Iron 26 ug/dL (49-181)
[2020-06-01 07:32] LABS: Percent Iron Saturation 18 % (20-50)
[2020-06-01 07:47] LABS: Folic Acid 8.3 ng/mL (2.76->20)
[2020-06-01 08:56] LABS: Free T4 Free Thyroxine Reflex 1.83 ng/dL (0.78-2.19)
[2020-06-01] MEDS: ASPIRIN 81 MG ENTERIC TABLET PO (09:12)
[2020-06-01] MEDS: METOPROLOL SUCCINATE EXT REL 50 MG TABCR PO (09:12)
[2020-06-01] MEDS: FOLIC ACID 1 MG TABLET PO (09:13)
[2020-06-01] MEDS: FERROUS SULFATE 324 MG TABLET PO (09:13)
[2020-06-01] MEDS: MIRTAZAPINE 15 MG TABLET PO (09:13)
[2020-06-01] MEDS: PANTOPRAZOLE 40 MG TABLET PO ×2 (09:13→20:46)
[2020-06-01] MEDS: APIXABAN 5 MG TABLET PO ×2 (09:13→17:00)
[2020-06-01] MEDS: CHOLECALCIFEROL 1,000 UNITS TABLET 2000 UNITS PO (09:14)
--- NOTE | 2020-06-01 15:12 | PM.IMPN ---
Progress Note: A&P Assessment and Plan (1) Nausea & vomiting: Code(s): R11.2 - Nausea with vomiting, unspecified Status: Resolved Assessment and Plan: The patient apparently had ongoing nausea and vomiting issues. Hospitalized here last week with similar symptoms. Could still be related to the gastritis. Symptoms resolving. Patient eating and tolerating without recurrent n/v. Even feeding himself. Continue the soft and bite sized meals and supplements. Continue PT/OT. ST to evaluate for possible aspiration risk. Check CXR due to cough. CXR showing worsened diffuse lung disease, consistent with pneumonia. Patient tested negative for COVID on 05/23. No fevers, leukocytosis or hypoxia. No witnessed cough by myself or the staff. Pulmonary edema? Residual from prior viral pneumonia (not given abx last admission)? Mark give Lasix IV once and monitor BP closely. (2) Chronic anemia: Code(s): D64.9 - Anemia, unspecified Status: Chronic Assessment and Plan: Hgb 10.5 on admission and stable on repeat. Over his last few visits, Hgb runs mostly 9-11 range. No signs of acute blood loss. Iron studies consistent with anemia of chronic disease with low TIBC and high ferritin. Could be from poor oral iintake. Monitor H/H and transfuse prn. (3) Gastritis: Code(s): K29.70 - Gastritis, unspecified, without bleeding Status: Acute Assessment and Plan: Stable. May still be contributing to his n/v. We continued his Protonix and Carafate. (4) Atrial fibrillation: Code(s): I48.91 - Unspecified atrial fibrillation Status: Inactive Assessment and Plan: No EKG on admission but appears to be regular. Metoprolol succinate 50mg resumed but decrease to daily (from BID) given the soft BP. BUS ESCORT and HR well controlled. We resumed his apixaban. (5) Ventricular tachycardia: Code(s): I47.2 - Ventricular tachycardia Status: Acute Assessment and Plan: Patient has a history of ventricular tachycardia with history of defibrillator firing. states patient no longer on mexiletine (and possibly Dofetilide) but this cannot be verified. Attempted to call [facility]CP and [facility] pharmacist on [facility]31 but no one available. Reluctant to stop these medications knowing his history. Will continue for now and monitor for side effects. Will have patient follow-up with mounting machine operator for further clarification. (6) AAA (abdominal aortic aneurysm): Code(s): I71.4 - Abdominal aortic aneurysm, without rupture Status: Acute Assessment and Plan: CT scan May 20 showing fusiform infrarenal aortic aneurysm up to 5.9 cm. was instructed to follow up with the patient's doctor at the [place] to arrange for vascular surgery evaluation. This has been reinforced. (7) DVT prophylaxis: Code(s): Z29.9 - Encounter for prophylactic measures, unspecified Status: Acute Assessment and Plan: SCDs Subjective Date/time seen: 06/01/20 15:12 Interval history: 79-year-old male with AFib, dementia and diabetes here for nausea vomiting. Patient was admitted [facility] on March 04 and had a 3 vessel CABG and ICD placed. Patient was hospitalized here on April 07 after his defibrillator fired x4. At that time he was on mexiletine and dofetilide. He was seen by cardiology. He was transferred to [facility] hospital for EP evaluation. Patient was transferred to a SNF and eventually discharged back home. Patient returned to our hospital on 05/20 for n/v. CT A/P showing 5.9cm aneurysm. Home meds again listed mexiletine and dofetilide. Seen by GI with EGD showing reflux esophagitis Grade III, esophageal ring that was dilated and moderate to severe diffuse gastritis. N/V felt related to the EGD findings. Patient confused so hx unreliable. No problems overnight per staff. states she has trouble with the patient at home and that he fights with her physi
[2020-06-01] MEDS: ATORVASTATIN 40 MG TABLET PO (20:46)
[2020-06-01] MEDS: TAMSULOSIN HCL 0.4 MG CAPSULE PO (20:46)
[2020-06-01] MEDS: ONDANSETRON INJ 4 MG/2 ML VIAL IV PUSH (23:14)
[2020-06-01 23:42] LABS: Glucose Point of Care 91 (65-105)
--- NOTE | 2020-06-01 23:49 | PC.NURSE ---
Patient dry heaving repetitively tonight, does not state discomfort or nausea, but I am on the verge of vomiting .. attempted to give IV zofran but IV blew. Patient was pale and shaky, checked blood glucose as he is diabetic but does not get acu checks, he was within normal limits. Lucy was able to start a new 22 gauge in his left forearm and I was able to pass the Zofran accordingly, patient still dry heaving at this time. -AEW RN
[2020-06-02] VITALS (8 sets, daily range): BP systolic 95–103; BP diastolic 51–68; PULSE 73–84; RESP 14–20; TEMP 35.8–36.6; O2SAT 97–100
[2020-06-02] MEDS: AMPICILLIN TRIHYDRATE 500 MG CAPSULE PO ×4 (01:12→18:34)
[2020-06-02] MEDS: LEVOTHYROXINE SODIUM 50 MCG TABLET PO (05:30)
[2020-06-02] MEDS: SUCRALFATE SUSP 100 MG/ML 10 ML UDC 1000 MG PO ×3 (05:30→17:02)
[2020-06-02] MEDS: MEXILETINE HCL 150 MG CAPSULE 300 MG PO ×2 (05:31→14:30)
[2020-06-02 06:10] LABS: Basophils Percent Auto 0.1 % (0.2-1.2); Eosinophils Percent Auto 0.3 % (0-4.4); Hematocrit 29.9 % (42.0-52.0); Hemoglobin 9.2 g/dL (14.0-18.0); Immature Granulocyte Absolute 0.06 K/mm3 (0.00-0.031); Immature Granulocyte Percent A 0.8 % (0-0.5); Lymphocytes Absolute Auto 1.15 K/mm3 (0.9-3.2); Lymphocytes Percent Auto 15.9 % (18.3-44.2); Mean Corpuscular HGB Conc 30.8 g/dl (32-36); Mean Corpuscular Volume 91.2 fl (80-100); Mean Platelet Volume 11.2 fl (7.4-10.4); Monocytes Absolute Auto 0.3 K/mm3 (0.1-0.6); Monocytes Percent Auto 4.7 % (2.6-8.5); Neutrophils Absolute Auto 5.7 K/mm3 (1.3-6.7); Neutrophils Percent Auto 78.2 % (45.5-73.1); Platelet Count Result 173 k/mm3 (150-375); Red Blood Count 3.28 M/mm3 (4.6-6.20); Red Cell Distribution Width 16.2 % (11.5-14.5); White Blood Count 7.3 K/mm3 (4.5-10.0)
[2020-06-02 06:34] LABS: Albumin Level 2.4 g/dL (3.5-5.1); Anion Gap 5 mmol/L (8-16); Blood Urea Nitrogen 19 mg/dL (9-20); Calcium 8.1 mg/dL (8.4-10.2); Carbon Dioxide 27 mmol/L (22-30); Chloride 101 mmol/L (98-107); Estimated CRCL calculation 55 ml/min; Estimated Glomerular Filt Rate > 60; Glucose 94 mg/dL (75-110); Magnesium 1.5 mg/dL (1.6-2.3); Phosphorus 3.4 mg/dL (2.5-4.5); Potassium 4.5 mmol/L (3.4-5.0); Sodium 133 mmol/L (137-145)
[2020-06-02] MEDS: ASPIRIN 81 MG ENTERIC TABLET PO (09:24)
[2020-06-02] MEDS: APIXABAN 5 MG TABLET PO ×2 (09:24→17:02)
[2020-06-02] MEDS: FOLIC ACID 1 MG TABLET PO (09:25)
[2020-06-02] MEDS: FERROUS SULFATE 324 MG TABLET PO (09:25)
[2020-06-02] MEDS: CHOLECALCIFEROL 1,000 UNITS TABLET 2000 UNITS PO (09:25)
[2020-06-02] MEDS: METOPROLOL SUCCINATE EXT REL 50 MG TABCR PO (09:27)
[2020-06-02] MEDS: PANTOPRAZOLE 40 MG TABLET PO (09:27)
[2020-06-02] MEDS: MIRTAZAPINE 15 MG TABLET PO (09:27)
[2020-06-02] MEDS: ACETAMINOPHEN 325 MG TABLET 650 MG PO (09:30)
[2020-06-02] MEDS: FUROSEMIDE INJ 40 MG/4 ML VIAL 20 MG IV PUSH (11:11)
--- NOTE | 2020-06-02 11:34 | PCSTNOTE ---
Bedside swallow study completed. Please see ST inpatient evaluation for further details and recommendations.
[2020-06-02 12:27] LABS: Glucose Point of Care 95 (65-105)
--- NOTE | 2020-06-02 14:10 | PM.IMPN ---
Progress Note: A&P Assessment and Plan (1) Unresponsive episode: Code(s): R41.89 - Other symptoms and signs involving cognitive functions and awareness Status: Acute Assessment and Plan: Event as detailed above. Suspect patient was sleeping in his chair. Will do neuro checks. Monitor clinically. (2) Abnormal chest xray: Code(s): R93.89 - Abnormal findings on diagnostic imaging of other specified body structures Status: Acute Assessment and Plan: CXR in April showing bilateral airspace disease most prominent in the lower lung zones. CXR last admission (05/20) showing moderate amount of bilateral ill-defined airspace disease probably COVID pneumonia. Patient tested negative for COVID on 05/23. CXR here showing worsening diffuse lung disease, consistent with pneumonia. No fevers, leukocytosis or hypoxia. Speech therapy has seen the pateint and no concerns for aspiration. Pulmonary edema? - Lasix given x 1 yesterday. Residual from prior viral pneumonia (not given abx last admission)? Doubt bacterial PNA. COVID test negative 1 week ago. Monitor for now. (3) UTI (urinary tract infection) due to Enterococcus: Code(s): N39.0 - Urinary tract infection, site not specified; B95.2 - Enterococcus as the cause of diseases classified elsewhere Status: Acute Assessment and Plan: UA noted. UCx growing Enterococcus species of 100K. Given his complaint of n/v, we added Ampicillin. (4) Nausea & vomiting: Code(s): R11.2 - Nausea with vomiting, unspecified Status: Resolved Assessment and Plan: The patient apparently had ongoing nausea and vomiting issues. Hospitalized here last week with similar symptoms. Could still be related to the gastritis. Could be related to UTI. Symptoms resolving with patient eating and tolerating without recurrent n/v. Even feeding himself. Speech did evaluate the patient as mentioned above and recommended regular diet and thin liquids without straws. Continue PT/OT. Change diet (5) Chronic anemia: Code(s): D64.9 - Anemia, unspecified Status: Chronic Assessment and Plan: Hgb 10.5 on admission and has trended down to 9.2 today. Over his last few visits, Hgb runs mostly 9-11 range. No signs of acute blood loss. Iron studies consistent with anemia of chronic disease with low TIBC and high ferritin. Could be from poor oral intake. Monitor H/H and transfuse prn. (6) Gastritis: Code(s): K29.70 - Gastritis, unspecified, without bleeding Status: Acute Assessment and Plan: Stable. EGD last admission (05/22) showing reflux esophagitis Grade III, esophageal ring that was dilated and moderate to severe diffuse gastritis. May still be contributing to his n/v. Continue his Protonix and Carafate. (7) Atrial fibrillation: Code(s): I48.91 - Unspecified atrial fibrillation Status: Inactive Assessment and Plan: No EKG on admission but appears to be regular. Metoprolol succinate 50mg resumed but decrease to daily (from BID) given the soft BP. HR well controlled. Monitor BP closely. Continue apixaban. (8) Ventricular tachycardia: Code(s): I47.2 - Ventricular tachycardia Status: Acute Assessment and Plan: Patient has a history of ventricular tachycardia with history of defibrillator firing. states patient no longer on mexiletine (and possibly Dofetilide) but this cannot be verified. Attempted to call [facility] and [facility] pharmacist on [facility] but no one available. Reluctant to stop these medications knowing his history. Patient eating better for us here. Will continue for now and monitor for side effects. Will have patient follow-up with distributed generation project manager for further clarification. (9) AAA (abdominal aortic aneurysm): Code(s): I71.4 - Abdominal aortic aneurysm, without rupture Status: Acute Assessment and Plan: CT scan May 20 show
--- NOTE | 2020-06-02 15:05 | PC.NURSE ---
1140 rapid response called pt was sitting up in his chair leaning to the left and drooling, he had been asleep attempted to stand pt to get back in bed and he went limp, pt has slightly weaker director of strategic sourcing on left but face is symetrical smmile is the same and is able to raise eyebrows, and stick his tongue out and move side to side, Dr. Zaragoza in room.
[2020-06-02] MEDS: MAGNESIUM SULF 2 GM/WATER 50ML 2 GM/50 ML BAG IVPB (16:59)
[2020-06-02 21:57] LABS: Glucose Point of Care 90 (65-105)
[2020-06-03] VITALS (7 sets, daily range): BP systolic 99–116; BP diastolic 60–68; PULSE 68–80; RESP 16–20; TEMP 36.2–36.9; O2SAT 94–99
[2020-06-03] MEDS: AMPICILLIN TRIHYDRATE 500 MG CAPSULE PO ×4 (00:07→17:10)
[2020-06-03 05:55] LABS: Hematocrit 32.6 % (42.0-52.0); Hemoglobin 10.2 g/dL (14.0-18.0); Mean Corpuscular HGB Conc 31.3 g/dl (32-36); Mean Corpuscular Hemoglobin 28.5 pg (26-34); Mean Corpuscular Volume 91.1 fl (80-100); Mean Platelet Volume 10.8 fl (7.4-10.4); Platelet Count Result 228 k/mm3 (150-375); Red Blood Count 3.58 M/mm3 (4.6-6.20); Red Cell Distribution Width 16.1 % (11.5-14.5); White Blood Count 8.3 K/mm3 (4.5-10.0)
[2020-06-03 06:18] LABS: Anion Gap 7 mmol/L (8-16); Blood Urea Nitrogen 20 mg/dL (9-20); Calcium 8.4 mg/dL (8.4-10.2); Carbon Dioxide 26 mmol/L (22-30); Chloride 101 mmol/L (98-107); Estimated CRCL calculation 46 ml/min; Estimated Glomerular Filt Rate 59; Glucose 85 mg/dL (75-110); Magnesium 1.9 mg/dL (1.6-2.3); Potassium 4.2 mmol/L (3.4-5.0); Sodium 134 mmol/L (137-145)
[2020-06-03 06:29] LABS: CRP 17.3 mg/dL (<1.0)
[2020-06-03] MEDS: MEXILETINE HCL 150 MG CAPSULE 300 MG PO ×3 (06:48→21:20)
[2020-06-03] MEDS: LEVOTHYROXINE SODIUM 50 MCG TABLET PO (06:49)
[2020-06-03] MEDS: SUCRALFATE SUSP 100 MG/ML 10 ML UDC 1000 MG PO ×4 (06:51→21:22)
[2020-06-03] MEDS: ASPIRIN 81 MG ENTERIC TABLET PO (08:30)
[2020-06-03] MEDS: APIXABAN 5 MG TABLET PO ×2 (08:30→17:10)
[2020-06-03] MEDS: CHOLECALCIFEROL 1,000 UNITS TABLET 2000 UNITS PO (08:30)
[2020-06-03] MEDS: FOLIC ACID 1 MG TABLET PO (08:31)
[2020-06-03] MEDS: FERROUS SULFATE 324 MG TABLET PO (08:31)
[2020-06-03] MEDS: METOPROLOL SUCCINATE EXT REL 50 MG TABCR PO (08:32)
[2020-06-03] MEDS: PANTOPRAZOLE 40 MG TABLET PO ×2 (08:33→21:22)
[2020-06-03] MEDS: MIRTAZAPINE 15 MG TABLET PO (12:00)
--- NOTE | 2020-06-03 15:13 | PCDIET ---
Nutrition Follow-Up Complete: Increased protein needs as related to wounds as evidenced by stage 3 PU-right buttock. Meet estimated nutritional needs Goal: Progressing towards goal. Continue goal. Pt current nutrition is Regular diet+ Tj BID Nutrition recommendation: Agree Last recorded weight is 72.2 kg, recommend updated wt Bowel Motility: No BM noted Labs Reviewed: 17.3 C reactive, Na 134 Meds Noted:Melatonin, Remeron, Fe, Folic Acid, Vitamin D Additional Notes: Agree with nutrition supplements. Pt c/o not having an appetite. PO intake is 68%. He declines the ice cream. We will continue to send TJ BID for wound healing. Education provided on how to slowly build up appetite. We will continue to monitor for adequate intake every five days.
[2020-06-03] MEDS: ACETAMINOPHEN 325 MG TABLET 650 MG PO (15:48)
--- NOTE | 2020-06-03 15:51 | PM.IMPN ---
Progress Note: A&P Assessment and Plan (1) Unresponsive episode: Code(s): R41.89 - Other symptoms and signs involving cognitive functions and awareness Status: Acute Assessment and Plan: Yesterday, patient was found sleeping in his chair concerned for being unresponsive but became more responsive. There was thought he had facial droop because he was drooling but not seen on my evaluation and patient able to raise both arms and no focal weakness. Suspect patient was sleeping in his chair. Monitor clinically. Continue ASA and Lipitor. (2) Abnormal chest xray: Code(s): R93.89 - Abnormal findings on diagnostic imaging of other specified body structures Status: Acute Assessment and Plan: CXR in April showing bilateral airspace disease most prominent in the lower lung zones. CXR last admission (05/20) showing moderate amount of bilateral ill-defined airspace disease probably COVID pneumonia. Patient tested negative for COVID on 05/23. CXR here showing worsening diffuse lung disease, consistent with pneumonia. No fevers, leukocytosis or hypoxia. Speech therapy has seen the patient and no concerns for aspiration. Pulmonary edema? - Lasix given x 1 06/01/20. Residual from prior viral pneumonia? Doubt bacterial PNA (not given abx last admission). Remains on room air. CRP elevated today: could have had COVID last admission? Monitor for now. COVID test (screening) pending. (3) UTI (urinary tract infection) due to Enterococcus: Code(s): N39.0 - Urinary tract infection, site not specified; B95.2 - Enterococcus as the cause of diseases classified elsewhere Status: Acute Assessment and Plan: UA noted. UCx growing Enterococcus species of 100K. Given his complaint of n/v, we added Ampicillin. (4) Nausea & vomiting: Code(s): R11.2 - Nausea with vomiting, unspecified Status: Resolved Assessment and Plan: The patient apparently had ongoing nausea and vomiting issues. Hospitalized here last week with similar symptoms. Could still be related to the gastritis. Could be related to UTI. Symptoms resolving with patient eating and tolerating without recurrent n/v. Even feeding himself. Speech did evaluate the patient as mentioned above and recommended regular diet and thin liquids without straws. Continue PT/OT. (5) Chronic anemia: Code(s): D64.9 - Anemia, unspecified Status: Chronic Assessment and Plan: Hgb 10.5 on admission and stable in the 9-10 range. Over his last few visits, Hgb runs mostly 9-11 range. No signs of acute blood loss. Iron studies consistent with anemia of chronic disease with low TIBC and high ferritin. Could be from poor oral intake. Monitor H/H and transfuse prn. (6) Gastritis: Code(s): K29.70 - Gastritis, unspecified, without bleeding Status: Acute Assessment and Plan: Stable. EGD last admission (05/22) showing reflux esophagitis Grade III, esophageal ring that was dilated and moderate to severe diffuse gastritis. May still be contributing to his n/v. Continue his Protonix and Carafate. (7) Atrial fibrillation: Code(s): I48.91 - Unspecified atrial fibrillation Status: Inactive Assessment and Plan: HR stable. Metoprolol succinate 50mg resumed but decrease to daily (from BID) given the soft BP. HR well controlled. BP still soft so will continue to monitor closely. Continue apixaban. (8) Ventricular tachycardia: Code(s): I47.2 - Ventricular tachycardia Status: Acute Assessment and Plan: Patient has a history of ventricular tachycardia with history of defibrillator firing. states patient no longer on mexiletine (and possibly Dofetilide) but this cannot be verified. Attempted to [facility] and [facility]ist [facility] but no one available; called PCP but no answer 06/03. Reluctant to stop these medications knowing his history. Will continue fo
[2020-06-03 19:29] LABS: SARS-CoV-2 RNA PCR Negative
[2020-06-03] MEDS: ATORVASTATIN 40 MG TABLET PO (21:22)
[2020-06-03] MEDS: TAMSULOSIN HCL 0.4 MG CAPSULE PO (21:23)
[2020-06-04] VITALS (8 sets, daily range): BP systolic 95–108; BP diastolic 56–68; PULSE 67–84; RESP 16–20; TEMP 36.4–36.7; O2SAT 96–99
--- NOTE | 2020-06-04 | ECHO_ITS ---
Patient Info Name: Pablo Medley Age: 79 years : 1940 Gender: Male Ht: 70 in Wt: 159 lbs BSA: 1.89 m2 HR: 74 bpm BP: 109 / 60 mmHg Heart Rhythm: Sinus Rhythm Technical Quality: Good Exam Date: 06/04/2020 11:50 AM Exam Location: [facility] Patient Status: Inpatient Admit Date: 06/01/2020 Staff Ordering Physician: Wei Zaragoza MD [employer] Helper: Jen Nolasco RDCS Attending Provider: Santos Paul MD Exam Type: CA echo doppler color flow Study Info Indications R01.1 - Cardiac murmur, unspecified Complete two-dimensional, color flow and Doppler transthoracic echocardiogram is performed. Summary 1. Complete two-dimensional, color flow and Doppler transthoracic echocardiogram is performed. 2. Left ventricular systolic function is severely reduced, estimated at 20-25%. 3. There is mildly increased left ventricular wall thickness. 4. Left ventricular septal wall motion is abnormal with septal motion related to pacing. 5. Left atrial chamber dimension is moderately enlarged. 6. There is moderate mitral valve regurgitation. 7. There is moderate tricuspid valve regurgitation. 8. Mild pulmonary hypertension, estimated pulmonary arterial systolic pressure is 40 mmHg. Left Ventricle Left ventricular chamber dimension is normal. Left ventricular systolic function is severely reduced, estimated at 20-25%. There is mildly increased left ventricular wall thickness. Left ventricular septal wall motion is abnormal with septal motion related to pacing. The left ventricular diastolic function is grade I diastolic dysfunction. Global longitudinal strain is severely elevated at -5 %. Right Ventricle Right ventricular chamber dimension is normal. Right ventricular systolic function is normal. Linear artifact in right ventricle suggestive of catheter(s), pacemaker lead(s), or ICD lead(s). Left Atria Left atrial chamber dimension is moderately enlarged. Right Atria Right atrial chamber dimension is mildly enlarged. Linear artifact in the right atrium suggestive of catheter(s), pacemaker lead(s), or ICD lead(s). Aortic Valve The aortic valve is trileaflet. There is mild aortic valve sclerosis. There is no aortic valve stenosis. There is mild aortic valve regurgitation. Pulmonic Valve The pulmonic valve is normal. There is mild pulmonic regurgitation. Mitral Valve The mitral valve has thickened leaflets. There is moderate mitral valve regurgitation. The mitral valve annulus is mildly calcified. Tricuspid Valve The tricuspid valve leaflets are normal. There is moderate tricuspid valve regurgitation. Mild pulmonary hypertension, estimated pulmonary arterial systolic pressure is 40 mmHg. Pericardium/Pleural The pericardium appears normal. There is small pericardial effusion. Inferior Vena Cava Normal inferior vena cava with <50% collapse upon inspiration consistent with elevated right atrial pressure, 10 mmHg. Aorta The aortic root size at the sinus of Valsalva is normal. There is mild aortic atherosclerosis. Left Ventricular Outflow Tract Name Value Normal LVOT 2D LVOT Diameter 2.3 cm LVOT Doppler
[2020-06-04] MEDS: AMPICILLIN TRIHYDRATE 500 MG CAPSULE PO ×4 (01:08→17:03)
[2020-06-04] MEDS: ACETAMINOPHEN 325 MG TABLET 650 MG PO ×2 (01:10→09:26)
[2020-06-04] MEDS: SUCRALFATE SUSP 100 MG/ML 10 ML UDC 1000 MG PO ×4 (06:16→20:50)
[2020-06-04] MEDS: LEVOTHYROXINE SODIUM 50 MCG TABLET PO (06:16)
[2020-06-04] MEDS: MEXILETINE HCL 150 MG CAPSULE 300 MG PO ×3 (06:16→20:43)
[2020-06-04] MEDS: APIXABAN 5 MG TABLET PO ×2 (09:26→17:03)
[2020-06-04] MEDS: FERROUS SULFATE 324 MG TABLET PO (09:26)
[2020-06-04] MEDS: FOLIC ACID 1 MG TABLET PO (09:26)
[2020-06-04] MEDS: ASPIRIN 81 MG ENTERIC TABLET PO (09:26)
[2020-06-04] MEDS: CHOLECALCIFEROL 1,000 UNITS TABLET 2000 UNITS PO (09:27)
[2020-06-04] MEDS: PANTOPRAZOLE 40 MG TABLET PO ×2 (09:27→20:44)
[2020-06-04] MEDS: METOPROLOL SUCCINATE EXT REL 50 MG TABCR PO (09:31)
--- NOTE | 2020-06-04 15:12 | PM.IMPN ---
Progress Note: A&P Assessment and Plan (1) Nausea & vomiting: Code(s): R11.2 - Nausea with vomiting, unspecified Status: Resolved Assessment and Plan: The patient apparently had ongoing nausea and vomiting although this appears to have resolved now. The patient is currently asymptomatic. The patient has been placed in observation status. Antiemetics as needed. (2) Chronic anemia: Code(s): D64.9 - Anemia, unspecified Status: Chronic Assessment and Plan: Likely anemia of chronic disease. No signs of acute blood loss. Monitor H/H transfuse prn. (3) Gastritis: Code(s): K29.70 - Gastritis, unspecified, without bleeding Status: Acute Assessment and Plan: Continue PPI therapy. (4) AAA (abdominal aortic aneurysm): Code(s): I71.4 - Abdominal aortic aneurysm, without rupture Status: Chronic Assessment and Plan: Patient will need to follow-up soon with vascular surgery to evaluate for surgical intervention. (5) Atrial fibrillation: Code(s): I48.91 - Unspecified atrial fibrillation Status: Chronic Assessment and Plan: Continue Eliquis and metoprolol Subjective Date/time seen: 06/04/20 15:12 Interval history: 79-year-old male with AFib, dementia and diabetes here for nausea vomiting. Patient was admitted to [facility] on March 04 and had a 3 vessel CABG and ICD placed. Patient was hospitalized here on April 07 after his defibrillator fired x4. At that time he was on mexiletine and dofetilide. He was seen by cardiology. He was transferred to [facility] hospital for EP evaluation. Patient returned to our hospital on 05/20 for n/v. CT A/P showing 5.9cm aneurysm. Home meds again listed mexiletine and dofetilide. Seen by GI with EGD showing reflux esophagitis Grade III, esophageal ring that was dilated and moderate to severe diffuse gastritis. Patient on and off confused per nursing staff which he has bbeen doing. no other issues per staff. Review of Systems Review of Systems: All systems reviewed & are unremarkable except as noted in HPI and below Exam Narrative: Exam Narrative: Gen - NARD, no acute ddistress Chest - decreased breath sounds bilaterally, nml RR CV - RRR S1/S2 with 2/6 systolic murmur Abd - Soft, NT/ND, Positive BS Ext - No pedal edema, no cyanosis or clubbing Neuro - Alert but confused. no gross motor deficits noted Psych - pleasant and cooperative Skin - Warm and dry Objective Data Vital Signs Vital Signs: Vital Signs - 24 hr 06/03/20 15:47 06/03/20 21:20 06/03/20 21:33 Temperature 98.4 F Pulse Rate 68 68 78 Respiratory Rate 20 Blood Pressure 109/60 Pulse Oximetry 95 06/04/20 06:00 06/04/20 06:16 06/04/20 09:31 Temperature 98.1 F Pulse Rate 75 78 84 Respiratory Rate 20 Blood Pressure 106/68 Pulse Oximetry 96 06/04/20 13:49 06/04/20 14:00 Temperature 97.5 F L Pulse Rate 67 70 Respiratory Rate 16 Blood Pressure 95/56 L Pulse Oximetry 99 Intake/Output Intake/Output: Intake & Output 06/01/20 06/02/20 06/03/20 06/04/20 23:59 23:59 23:59 23:59 Intake Total 1230 1315 1040 75 Output Total 300 250 200 350 Balance 930 1065 840 -275 Meds/Results Medications: Active Medications Generic Name Dose Route Start Last Admin Trade Name Freq PRN Reason Stop Dose Admin Acetaminophen 650 mg 05/31/20 06:56 06/04/20 09:26 Acetaminophen 325 Mg Tablet PO 650 mg Q4H PRN Administration Mild Pain (1-3) or Fever Ampicillin 500 mg 06/02/20 00:00 06/04/20 11:31 Ampicillin Trihydrate 500 Mg Capsule PO 500 mg Q6HR [place] Administration Apixaban 5 mg 05/31/20 17:05 06/04/20 09:26 Apixaban 5 Mg Tablet PO 5 mg BID [place] Administration Aspirin 81 mg 06/01/20 09:00 06/04/20 09:26 Aspirin 81 Mg Enteric Tablet PO 81 mg DAILY [place] Administration Atorvastatin Calcium 40 mg 05/31/20 21:00 06/03/20 21:22 Atorvastatin 40 Mg Tablet PO 40
--- NOTE | 2020-06-04 15:14 | PCOTNOTE ---
The OT treatment session was unable to be completed today. Will continue plan of care tomorrow, 06/05/20.
[2020-06-04] MEDS: TAMSULOSIN HCL 0.4 MG CAPSULE PO (20:44)
[2020-06-04] MEDS: MIRTAZAPINE 15 MG TABLET PO (20:44)
[2020-06-04] MEDS: ATORVASTATIN 40 MG TABLET PO (20:44)
[2020-06-05] MEDS: AMPICILLIN TRIHYDRATE 500 MG CAPSULE PO ×2 (00:07→05:16)
[2020-06-05 05:16] VITALS: PULSE 72
[2020-06-05] MEDS: SUCRALFATE SUSP 100 MG/ML 10 ML UDC 1000 MG PO (05:16)
[2020-06-05] MEDS: LEVOTHYROXINE SODIUM 50 MCG TABLET PO (05:16)
[2020-06-05] MEDS: MEXILETINE HCL 150 MG CAPSULE 300 MG PO (05:16)
[2020-06-05 05:57] VITALS: BP 105/62; PULSE 78; RESP 20; TEMP 36.2; O2SAT 98
[2020-06-05 06:19] LABS: Basophils Percent Auto 0.1 % (0.2-1.2); Eosinophils Percent Auto 0.4 % (0-4.4); Hematocrit 32.7 % (42.0-52.0); Hemoglobin 10.2 g/dL (14.0-18.0); Immature Granulocyte Absolute 0.04 K/mm3 (0.00-0.031); Immature Granulocyte Percent A 0.6 % (0-0.5); Lymphocytes Absolute Auto 0.66 K/mm3 (0.9-3.2); Lymphocytes Percent Auto 9.9 % (18.3-44.2); Mean Corpuscular HGB Conc 31.2 g/dl (32-36); Mean Corpuscular Hemoglobin 28.3 pg (26-34); Mean Corpuscular Volume 90.8 fl (80-100); Mean Platelet Volume 10.9 fl (7.4-10.4); Monocytes Absolute Auto 0.3 K/mm3 (0.1-0.6); Monocytes Percent Auto 4.5 % (2.6-8.5); Neutrophils Absolute Auto 5.6 K/mm3 (1.3-6.7); Neutrophils Percent Auto 84.5 % (45.5-73.1); Platelet Count Result 221 k/mm3 (150-375); Red Cell Distribution Width 16.4 % (11.5-14.5); White Blood Count 6.7 K/mm3 (4.5-10.0)
[2020-06-05 06:39] LABS: Anion Gap 6 mmol/L (8-16); Blood Urea Nitrogen 22 mg/dL (9-20); Calcium 7.9 mg/dL (8.4-10.2); Carbon Dioxide 24 mmol/L (22-30); Chloride 102 mmol/L (98-107); Estimated CRCL calculation 61 ml/min; Estimated Glomerular Filt Rate > 60; Glucose 71 mg/dL (75-110); Potassium 4.5 mmol/L (3.4-5.0); Sodium 132 mmol/L (137-145)
[2020-06-05 08:00] VITALS: PULSE 80; RESP 20; O2SAT 98
[2020-06-05] MEDS: PANTOPRAZOLE 40 MG TABLET PO (10:09)
[2020-06-05] MEDS: ASPIRIN 81 MG ENTERIC TABLET PO (10:09)
[2020-06-05] MEDS: FERROUS SULFATE 324 MG TABLET PO (10:09)
[2020-06-05] MEDS: CHOLECALCIFEROL 1,000 UNITS TABLET 2000 UNITS PO (10:09)
[2020-06-05] MEDS: FOLIC ACID 1 MG TABLET PO (10:09)
[2020-06-05 10:10] VITALS: PULSE 80
[2020-06-05] MEDS: METOPROLOL SUCCINATE EXT REL 50 MG TABCR PO (10:10)
[2020-06-05] MEDS: APIXABAN 5 MG TABLET PO (10:10)
--- NOTE | 2020-06-05 11:22 | PM.DS ---
DS: Admitting Diagnosis Admitting Diagnosis Admitting Diagnosis: Exam Narrative: Gen - NARD, no acute ddistress Chest - decreased breath sounds bilaterally, nml RR CV - RRR S1/S2 with 2/6 systolic murmur Abd - Soft, NT/ND, Positive BS Ext - No pedal edema, no cyanosis or clubbing Neuro - Alert but confused. no gross motor deficits noted Psych - pleasant and cooperative Skin - Warm and drynausea, vomiting DS: Summary Hospital Course Hospital Course: This is a 79 year old male with known history of chronic anticoagulation with Eliquis for atrial fibrillation, hypothyroidism, and CAD+ s/p CABG who presented to the hospital with his secondary to ongoing nausea and vomiting. The patient was just on our hospital service and discharged home. His brought him back tonight stating that the patient has not been eating and has had ongoing nausea and vomiting. The patient is severely demented a # Nausea, vomting: resolved conservatively. antiemetic as needed but has not required at all. # Chronic anemia: Likely anemia of chronic disease. No signs of acute blood loss. Monitor H/H transfuse prn. # Gastritis: recent hx of refluexx esophagitis grade III, esophageal ring that was dilated and mdoeratee to severe diffuse gastritis Continue PPI therapy. # AAA (abdominal aortic aneurysm): 5.9 cm in size. Patient will need to follow-up soon with vascular surgery to evaluate for surgical intervention. # Atrial fibrillation: Continue Eliquis and metoprolol # cardiomyopathy: with hx of afib/vtach: on mexiletine, dofetilide. follow up [facility] cardiology. resume lisinoril 2.5 mg po daily, spironolactone 12.5 mg po daily , metoprolol 50 mg po daily. soft blood pressure monitor. Status at Discharge Overall status at discharge: patient is progressing back to baseline Time Spent with Patient Time attestation: Total time spent providing and/or coordinating discharge services: Time spent: Greater than 30 minutes Exam Narrative: Exam Narrative: Exam Narrative: Gen - NARD, no acute ddistress Chest - decreased breath sounds bilaterally, nml RR CV - RRR S1/S2 with 2/6 systolic murmur Abd - Soft, NT/ND, Positive BS Ext - No pedal edema, no cyanosis or clubbing Neuro - Alert but confused. no gross motor deficits noted Psych - pleasant and cooperative Skin - Warm and dry DS: Data Data Completed and Pending Labs on day of discharge: Labs from last 24 hours 06/05/20 06/05/20 05:50 05:50 WBC 6.7 RBC 3.60 L Hgb 10.2 L Hct 32.7 L MCV 90.8 MCH 28.3 MCHC 31.2 L RDW 16.4 H Plt Count 221 MPV 10.9 H Immature Gran % (Auto) 0.6 H Neut % (Auto) 84.5 H Lymph % (Auto) 9.9 L [place] % (Auto) 4.5 Eos % (Auto) 0.4 Baso % (Auto) 0.1 L Lymph # (Auto) 0.66 L [place] # (Auto) 0.3 Eos # (Auto) 0.0 Baso # (Auto) 0.0 Abs Immat Gran (auto) 0.04 H Absolute Neuts (auto) 5.6 Absolute Nucleated RBC 0.0 Nucleated RBC % 0.0 Sodium 132 L Potassium 4.5 Chloride 102 Carbon Dioxide 24 Anion Gap 6 L BUN 22 H Creatinine 0.90 Estim Creat Clear Calc 61 Estimated GFR > 60 Glucose 71 L Calcium 7.9 L Discharge Plan Discharge Attending physician on discharge: Santos Aparicio Discharging Clinician: adriano aparicio Anticipated Discharge Date/Time: 06/05/20 11:09 Patient Disposition: SNF Activity: as tolerated Diet: heart healthy and low sodium Discharge Instructions: Per Care Coordination: Patient will resume Home Health services with [facility], and PT/OT eval and treat. They can be reached at [phone]. RN Please fax discharge instructions to [phone]. PT/OT to continue to evaluate and treat Patient Instructions: Apixaban (By mouth), Gastritis (DC), Acute Nausea and Vomiting (DC) Stand Alone Forms: General Discharge Information Discharge Medications: New acetaminophen [Mapap (acetaminophen)] 325 mg Tablet 650
[2020-06-05 14:00] VITALS: BP 105/66; PULSE 79; RESP 16; TEMP 36.2; O2SAT 92
--- NOTE | 2020-06-05 14:29 | PCOTNOTE ---
Patient frequency reduced to 2-3x/wk this date due to decreased participation with skilled OT services
--- NOTE | 2020-06-20 10:25 | PC.NURSE ---
This patient was called multiple times about home medication (DOFETILIDE) being left at the hospital and the only number listed in the chart is no longer in service, will dispose of this medication. ANNE GONZALES 06/20/2020
== END 2020-06-05 16:55 | DRG 392 ==
LOC: ANHED 05-31 02:35 → ANH3MEDSUR 05-31 02:43
PROVIDERS: Internal Medicine; Admitting Provider Family Medicine; Emergency Provider Emergency Medicine; Visit Provider Internal Medicine
DX: K29.70 Gastritis, unspecified, without bleeding (principal); N39.0 Urinary tract infection, site not specified; I48.20 Chronic atrial fibrillation, unspecified; I47.2 Ventricular tachycardia; I42.9 Cardiomyopathy, unspecified; K21.00 Gastro-esophageal reflux disease with esophagitis, without bleeding; B95.2 Enterococcus as the cause of diseases classified elsewhere; D63.8 Anemia in other chronic diseases classified elsewhere; Z20.822 Contact with and (suspected) exposure to COVID-19; I71.4 Abdominal aortic aneurysm, without rupture; I11.0 Hypertensive heart disease with heart failure; I50.9 Heart failure, unspecified; I25.10 Atherosclerotic heart disease of native coronary artery without angina pectoris; K44.9 Diaphragmatic hernia without obstruction or gangrene; E03.9 Hypothyroidism, unspecified; G47.33 Obstructive sleep apnea (adult) (pediatric); E55.9 Vitamin D deficiency, unspecified; I25.5 Ischemic cardiomyopathy; E78.5 Hyperlipidemia, unspecified; E11.9 Type 2 diabetes mellitus without complications; F03.90 Unspecified dementia, unspecified severity, without behavioral disturbance, psychotic disturbance, mood disturbance, and anxiety; D50.9 Iron deficiency anemia, unspecified; Z79.01 Long term (current) use of anticoagulants; Z95.1 Presence of aortocoronary bypass graft; Z87.891 Personal history of nicotine dependence; Z95.810 Presence of automatic (implantable) cardiac defibrillator
CPT/HCPCS: 36415; 71045; 80048; 80053; 80069; 81001; 82607; 82728; 82746; 83540; 83550; 83690; 83735; 84439; 84443; 84480; 85025; 85027; 86140; 87077; 87086; 87088; 87186; 92610; 93306; 96361; 96374; 97110; 97161; 97165; 97530; 97535; 99285; A9270; C9803; G0378; J1940; J2405; J3475; J7030; J7120; U0003; U0005